=== PATIENT | male | born 1995 | race Caucasian/White ===

== ENCOUNTER 2017-11-22 15:23 | Emergency (ER) | payer OTHER | END 2017-11-22 15:50 | disposition left against medical advice (07) | DX: Z53.21 Procedure and treatment not carried out due to patient leaving prior to being seen by health care provider (principal) ==

== ENCOUNTER 2017-12-29 19:09 | Inpatient (IN) | payer OTHER ==
[2017-12-29 19:24] LABS: PLATELET COUNT 197 10^3/uL (150-400)
--- NOTE | 2017-12-29 20:08 | EDPHY ---
H & P Time Seen by Provider: 12/29/17 19:10 HPI/ROS: CHIEF COMPLAINT: M1 hold HISTORY OF PRESENT ILLNESS: 22-year-old male presents to the emergency department on M1 hold. Patient has a history schizoaffective disorder and apparently has been noncompliant with his medications for months. The patient is currently on a court-ordered certification. The patient tells me that he is not suicidal homicidal. He denies auditory or visual hallucinations. He denies substance abuse. He currently has no physical complaints. He denies pain in his chest or difficulty breathing. Denies abdominal pain. Denies headache. Denies any reported trauma. REVIEW OF SYSTEMS: Constitutional: No fever, no chills. Eyes: No double or blurry vision. ENT: No sore throat. Respiratory: No cough, no shortness of breath. Cardiac: No chest pain. Gastrointestinal: No abdominal pain, vomiting or diarrhea. Genitourinary: No dysuria. Musculoskeletal: No neck or back pain. Skin: No rashes. Neurological: No headache. Past Medical/Surgical History: Schizoaffective disorder, polysubstance abuse Social History: Single Smoking Status: Current some day smoker Physical Exam: General Appearance: Alert, no distress. Poor eye contact, flat affect. Eyes: Pupils equal and round. Extraocular motions are all intact. ENT: Mouth: Mucous membranes moist. Respiratory: No wheezing, rhonchi, or rales, lungs are clear to auscultation. Cardiovascular: Regular rate and rhythm. Gastrointestinal: Abdomen is soft and nontender, no masses, no rebound or guarding, bowel sounds normal. Neurological: Alert and oriented x 3, cranial nerves II through XII grossly intact Skin: Warm and dry, no rashes. Musculoskeletal: Nontender to palpate along the cervical, thoracic or lumbar spine. Neck is supple. Extremities: Full range of motion and no peripheral edema. Psychiatric: Patient is oriented X 3, there is no agitation. Constitutional: Initial Vital Signs Temperature (C) 37.1 C 12/29/17 19:18 Heart Rate 85 12/29/17 19:18 Respiratory Rate 20 12/29/17 19:18 Blood Pressure 122/75 H 12/29/17 19:18 O2 Sat (%) 98 12/29/17 19:18 O2 Delivery Mode Room Air Allergies/Adverse Reactions: No Known Allergies Allergy (Verified 12/29/17 19:18) Home Medications: Medication Instructions Recorded OLANZapine DISINTEGR [ZyPREXA 20 mg PO HS #30 tab 12/11/15 ZYDIS (*)] OXcarbazepine [Trileptal 300mg (*)] 600 mg PO DAILY #60 tab 12/11/15 OXcarbazepine [Trileptal 300mg (*)] 600 mg PO HS #60 tab 12/11/15 [place]-3 Fatty Acids [Fish Oil 1000 1,000 mg PO DAILY #0 cap 12/11/15 mg (*)] cloZAPine [Clozaril (*)] 75 mg PO HS #90 tab 12/11/15 Medical Decision Making ED Course/Re-evaluation: 22-year-old male with a known history of schizoaffective disorder has been noncompliant with medication. He is on a certification. He has been evaluated by mental health and medically cleared and he will be placed on 3 [place] inpatient mental health bed. Differential Diagnosis: Depression including functional and major depression, situational depression, medication side effect, drugs and alcohol abuse. - Data Points Laboratory Results: Laboratory Results 12/29/17 19:05 12/29/17 19:05 12/29/17 12/29/17 12/29/17 19:49 19:05 19:05 WBC 8.47 10^3/uL 10^3/uL (3.80-9.50) RBC 5.68 10^6/uL 10^6/uL (4.40-6.38) Hgb 17.0 g/dL g/dL (13.7-17.5) Hct 49.9 % % (40.0-51.0) MCV 87.9 fL fL (81.5-99.8) MCH 29.9 pg pg (27.9-34.1) MCHC 34.1 g/dL g/dL (32.4-36.7) RDW 12.6 % % (11.5-15.2) Plt Count 197 10^3/uL 10^3/uL (150-400) MPV 10.7 fL fL (8.7-11.7) Neut % (Auto) 50.3 % % (39.3-74.2) Lymph % (Auto) 40.4 % % (15.0-45.0) [place] % (Auto) 7.3 % % (4.5-13.0) Eos % (Auto) 1.2 % % (0.6-7.6) Baso % (Auto) 0.7 % % (0.3-1.7) Nucleat RBC Rel Count 0.0 % % (0.0-0.2) Absolute Neuts (auto) 4.26 10^3/uL 10^3/uL (1.70-6.50) Absolute Lymphs (auto) 3.42 10^3/uL H 10^3/uL (1.00-3.00) Absolute Monos (auto) 0.62 10^3/uL 10^3/uL (0.30-0.80) Absolute Eos (auto) 0.10 10^3/uL 10^3/uL (0.03-0.40) Absolute Basos (auto) 0.06 10^3/uL 10^3/uL (0.02-0.10) Absolute Nucleated RBC 0.00 10^3/uL 10^3/uL (0-0.01) Immature Gran % 0.1 % % (0.0-1.1) Immature Gran # 0.01 10^3/uL 10^3/uL (0.00-0.10) Sodium 142 mEq/L mEq/L (135-145) Potassium 3.9 mEq/L mEq/L (3.3-5.0) Chloride 103 mEq/L mEq/L (97-110) Carbon Dioxide 25 mEq/l mEq/l (22-31) Anion Gap 14 mEq/L mEq/L (8-16) BUN 14 mg/dL mg/dL (7-23) Creatinine 0.9 mg/dL mg/dL (0.7-1.3) Estimated GFR > 60 Glucose 82 mg/dL mg/dL (70-100) Calcium 9.5 mg/dL mg/dL (8.5-10.4) Urine Opiates Screen NEGATIVE (NEGATIVE) Urine Barbiturates NEGATIVE (NEGATIVE) Ur Phencyclidine Scrn NEGATIVE (NEGATIVE) Ur Amphetamine Screen NEGATIVE (NEGATIVE) U Benzodiazepines Scrn NEGATIVE (NEGATIVE) Urine Cocaine Screen NEGATIVE (NEGATIVE) U Marijuana (THC) Screen NEGATIVE (NEGATIVE) Ethyl Alcohol < 10 mg/dL mg/dL (0-10) Medications Given: Discontinued Medications Lorazepam (Ativan) 1 mg PO EDNOW ONE Stop: 12/29/17 22:28 Last Admin: 12/29/17 22:34 Dose: 1 mg Olanzapine (Zyprexa Zydis) 10 mg PO EDNOW ONE Stop: 12/29/17 22:25 Last Admin: 12/29/17 22:34 Dose: 10 mg Departure - Departure Disposition: [facility] IP Clinical Impression: Schizoaffective disorder, depressive type Condition: Fair Referrals: Carmela Smiley PA [Primary Care Provider] - As per Instructions
[2017-12-29] MEDS ORDERED: OLANZapine DISINTEGR 10 MG TAB PO ONE (22:24)
[2017-12-29] MEDS ORDERED: LORazepam 1 MG TAB PO ONE (22:27)
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
--- NOTE | 2017-12-29 23:02 | ASMTTCLDSP ---
TLC Discharge Disposition Disposition: Answers: Admit Discharge Concerns/Recommendations: Notes: IN CONSULTATION WITH [facility] ED PHYSICIAN, RONNY NAVA MD AND ON-CALL PSYCHIATRIST, MELANIE MARCUM MD, BOTH CONCURRED THAT PT APPEARS TO MEET 27-65 CRITERIA REQUIRING PSYCHIATRIC HOSPITALIZATION PT APPEARS TO BE GRAVELY DISABLED DUE TO A MENTAL ILLNESS CONDITION. PT WAS GIVEN THE 3N PROHIBITED BELONGINGS LIST WHILE IN THE ED. Was patient given the Answers: Yes Inpatient Behavioral Health Prohibited Belongings List while in the ED? For inpatient Melanie Marcum MD admission, the following psychiatrist agreed to accept patient for admission to [facility] Hold initiated by: Answers: Court Order Date Signed: 12/29/2017 11:02 PM Electronically Signed By:Mariah Morales
[2017-12-30] MEDS ORDERED: NICOTINE POLACRILEX 2 MG GUM B PRN (00:55)
[2017-12-30] MEDS ORDERED: LORazepam 0.5 MG TAB PO PRN (00:55)
[2017-12-30] MEDS ORDERED: MAG HYDROX/AL HYDROX/SIMETH 30 ML UDCUP PO PRN (00:55)
[2017-12-30] MEDS ORDERED: MAGNESIUM HYDROXIDE 30 ML UDCUP PO PRN (00:55)
[2017-12-30] MEDS ORDERED: ACETAMINOPHEN 325 MG TAB PO PRN (00:55)
[2017-12-30] MEDS ORDERED: OLANZapine DISINTEGR 10 MG TAB PO PRN (00:55)
--- NOTE | 2017-12-30 11:03 | ASMTBHMTP ---
Master Treatment Plan Master Treatment Plan Answers: Impaired Reality for: Date: 12/30/2017 Diagnosis on Admission: Schizoaffective Disorder & Psychotic Disorder Expected length of stay: 3-5 days Reason for admission: Notes: Client is a 22 yoa male, brought to ED on a court order petition signed by [facility]. Per [facility], "pt has been in a mental health program in [place], [place] where pat initially was making great progress; he was highly functional and well groomed after he cam to [place], [place] to visit on July 16, 2017. Pt was complying with Medication and therapy requirements Pt returned to [place] recently, in which MOC "noticed a change in his behavior and a declining in his mental state." "Pt stopped following the rules of the program, his communication with [facility] was nonsensical and disorganized." Pt has a hx of being on COM as well as Certified. Patient's stated presenting problems: Notes: "I don't know." Patient's goals for treatment: Notes: None Patient's strengths: Notes: None Identify supports outside of hospital: Notes: Family and Friends Discharge criteria: Notes: Psychotic symptoms will be reduced or eliminated with return to baseline functioning in affect, thinking and behavior prior to discharge. Initial disposition plan/considerations: Notes: "not sure yet." Master Treatment Plan Required Signatures Psychiatrist signature: Answers: DENIA Perera: RN on-shift signature: Answers: RN: Patient signature: Answers: Patient: Date Signed: 12/30/2017 11:03 AM Electronically Signed By:Vish Moody
[2017-12-30] MEDS ORDERED: OLANZapine DISINTEGR 5 MG TAB PO PRN (12:54)
[2017-12-30] MEDS: OXcarbazepine 300 MG TAB PO SCH ×2 (13:51→20:28)
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
[2017-12-30] MEDS: OLANZapine DISINTEGR 10 MG TAB PO SCH (20:28)
[2017-12-30] MEDS: cloZAPine 25 MG TAB PO SCH (20:29)
[2017-12-31] MEDS: OXcarbazepine 300 MG TAB PO SCH ×2 (12:27→20:19)
--- NOTE | 2017-12-31 13:33 | ASMTBHDC ---
Notes Note: Notes: CC was able to confirm tentative follow up appt for client with provider, See below: Richardson Delgadillo MD [address] [place] [id number] Next Appt: Thursday, January 11 (01/11/18) at 11:30am Date Signed: 12/31/2017 01:33 PM Electronically Signed By:Vish Moody
--- NOTE | 2017-12-31 15:50 | SOAPPROG ---
SOAP Progress Note Assessment/Plan: Assessment: Schizoaffective, bipolar type. Slight improvement noted. (see subjective/ objective note). Attending to ADLs. Patient is not safe to discharge at this time as patient continues to exhibit and express signs of psychosis. Patient requires continued inpatient care because of current psychosis, and requires inpatient level of care to stabilize in order to no longer be a danger to himself/herself, gravely disabled due to mental illness. Patient could benefit from continued inpatient hospitalization for crisis stabilization, safety, and medication evaluation. Plan: Review psychotropic medication treatment informed consent and recommendations. After reviewing options, risk and benefits, patient agrees to continue medications. No medication changes at this time as more time is needed to determine ongoing tolerability and efficacy. Plan is to continue to observe patient for response and side effects from medications, and ongoing monitoring and evaluation. Next steps are for patient to meet with intensive care unit registered nurse to plan a safe discharge plan and establish outpatient services for ongoing treatment. Consider discharge next week if patient is in stable condition, safe, and has a safe discharge plan. PSYCHOTROPIC MEDICATION TREATMENT INFORMED CONSENT and RECOMMENDATIONS: Review nature of condition, diagnosis, and prognosis. Review nature and purpose of psychotropic medication treatment. Review type of psychotropic medications being ordered. Review risk and benefits of psychotropic medication treatment. Review probable length of time patient will need to take medications. Review risk and benefits of not undergoing psychotropic medication treatment. Review alternative treatments to psychotropic medications. Review psychotropic medications contraindications, drug-drug interactions, side effects, and importance of reporting any side effects to a psychiatric provider or nurse during inpatient hospitalization, and upon discharge to patients psychiatric outpatient provider, primary care provider, or other health child care sitter. Review importance of asking a nurse, psychiatric provider, or primary care provider any questions or problems concerning the psychotropic medications. Verify patient understands the information that has been provided, and understands, accepts, and agrees to psychotropic medications. Review patients safety plan and importance of patient to report to staff while hospitalized if patient is ever a danger to self/others, or unable to care for self, and upon discharge, the importance for patient to contact [facility] or [facility], or go to the nearest emergency room, if patient is ever a danger to self/others, or unable to care for self. Recommend that upon discharge patient establish medication management treatment with a psychiatric provider, establishes routine therapy appointments, and follow-up with primary care provider. Verify patient understands and agrees to these recommendations. 12/31/17 16:15 Subjective: Following up with patient for evaluation of psychosis and safety. Patient reports, "Really don't feel like talking to you for very long." Patient provides one word answers to interview questions. Objective: Vital Signs Temp Pulse Resp BP Pulse Ox 36.6 C 50 L 15 114/68 98 12/31/17 06:00 12/31/17 06:00 12/31/17 06:00 12/31/17 06:00 12/31/17 06:00 NURSING REPORT: Consulted with nursing for update on patients progress in treatment. Nurses report patient is not engaged in treatment, is not attending groups, slept 9.5 hours, expresses the following psychiatric symptoms: none; exhibits the following psychiatric symptoms: disorganized and withdrawn to room ; is eating all meals, is taking medications as prescribed with no report of side effects, with no S/S of EPS/akathisia, and denies SI/HI, A/V hallucinations. 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 Patient shows slight treatment response as of today. Patient continues to exhibit signs of psychosis; disorganized and withdrawn to room. The patient is a well-nourished male looking older than chronological age. Attire is appropriate and dress is hospital garb, and is disheveled. Grooming status is inappropriate and disheveled. Ambulation is independent. Gait is normal and coordinated. Posture is normal. Eye contact is inappropriate and avoidant. Motor activity is appropriate. Attitude is uncooperative. Patient appears disinterested, internally occupied and does not relate well to this interviewer. Language production is unspontaneous. Rate is hesitant. Latency of response is prolonged. Patient reports mood as okay euthymic, with constricted incongruent affect. Patients thought process is non-linear and illogical, with loose associations, thought blocking. Patient does not report suicidal/homicidal thoughts, ideas, or plans. Patient denies auditory, visual hallucinations. Patient denies delusions. Patient does appear to be attending to internal stimuli. Patients attention and concentration are poor. Patient is oriented to person, place, time, and situation. Patients insight is poor. Patients judgment is poor. Patient reports taking medications as prescribed. Patient does not report undesirable side effects from the medications. These are described as: Patient slept 9 hours. Patient reports appetite as good, and reports eating all meals. - Time Spent With Patient Time Spent With Patient: 15 minutes, met with patient individually. - Pending Discharge Pending Discharge Within 24 Hours: No Pending Discharge Within 48 Hours: No ICD10 Worksheet Patient Problems: Problems Problem Status Onset Schizoaffective disorder, depressive type Acute Acute psychosis Acute
[2017-12-31] MEDS: cloZAPine 25 MG TAB PO SCH (20:20)
[2017-12-31] MEDS: OLANZapine DISINTEGR 10 MG TAB PO SCH (20:20)
[2018-01-01] MEDS: OXcarbazepine 300 MG TAB PO SCH ×2 (08:29→20:53)
--- NOTE | 2018-01-01 08:45 | SOAPPROG ---
SOAP Progress Note Assessment/Plan: Assessment: Schizoaffective, bipolar type. Slight improvement noted. (see subjective/ objective note). Attending to ADLs. Patient is not safe to discharge at this time as patient continues to exhibit signs of psychosis. Patient requires continued inpatient care because of current psychosis, and requires inpatient level of care to stabilize in order to no longer be a danger to himself/herself , gravely disabled due to mental illness. Patient could benefit from continued inpatient hospitalization for crisis stabilization, safety, and medication evaluation. Plan: Review psychotropic medication treatment informed consent and recommendations. After reviewing options, risk and benefits, patient agrees to continue medications with following changes: increase Clozapine to 100 mg po QHS. No medication changes at this time as more time is needed to determine ongoing tolerability and efficacy. Plan is to continue to observe patient for response and side effects from medications, and ongoing monitoring and evaluation. Next steps are for patient to meet with field care coordinator to plan a safe discharge plan and establish outpatient services for ongoing treatment. Consider discharge next week if patient is in stable condition, safe, and has a safe discharge plan. PSYCHOTROPIC MEDICATION TREATMENT INFORMED CONSENT and RECOMMENDATIONS: Review nature of condition, diagnosis, and prognosis. Review nature and purpose of psychotropic medication treatment. Review type of psychotropic medications being ordered. Review risk and benefits of psychotropic medication treatment. Review probable length of time patient will need to take medications. Review risk and benefits of not undergoing psychotropic medication treatment. Review alternative treatments to psychotropic medications. Review psychotropic medications contraindications, drug-drug interactions, side effects, and importance of reporting any side effects to a psychiatric provider or nurse during inpatient hospitalization, and upon discharge to patients psychiatric outpatient provider, primary care provider, or other health complex care nurse practitioner. Review importance of asking a nurse, psychiatric provider, or primary care provider any questions or problems concerning the psychotropic medications. Verify patient understands the information that has been provided, and understands, accepts, and agrees to psychotropic medications. Review patients safety plan and importance of patient to report to staff while hospitalized if patient is ever a danger to self/others, or unable to care for self, and upon discharge, the importance for patient to contact [facility] or [facility], or go to the nearest emergency room, if patient is ever a danger to self/others, or unable to care for self. Recommend that upon discharge patient establish medication management treatment with a psychiatric provider, establishes routine therapy appointments, and follow-up with primary care provider. Verify patient understands and agrees to these recommendations. 01/01/18 08:45 Subjective: Following up with patient for evaluation of psychosis and safety. Patient reports, Just trying to tie the loose ends in the knot. Patient provides one- word answers to interview questions. Patient agrees to continue medications and meet with Dr. Arcos from [facility] today at 1000 to discuss potential for patient to be admitted to their program after discharge. Objective: Vital Signs Temp Pulse Resp BP Pulse Ox 36.3 C 70 14 102/64 96 01/01/18 06:00 01/01/18 06:00 01/01/18 06:00 01/01/18 06:00 01/01/18 06:00 NURSING REPORT: Consulted with nursing for update on patients progress in treatment. Nurses report patient is not engaged in treatment, is not attending groups, slept 9 hours, expresses the following psychiatric symptoms: none; exhibits the following psychiatric symptoms: disorganized and withdrawn to room ; is eating all meals, is taking medications as prescribed with no report of side effects, with no S/S of EPS/akathisia, and denies SI/HI, A/V hallucinations. 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 Arcos today at 1000. UPDATE: Patient is currently slowly improving, tolerating medications with no reports of side effects, and with fair response for psychotic symptoms. Patient shows slight treatment response as of today. Patient continues to exhibit signs of psychosis; disorganized, nonsensical, and withdrawn to room. The patient is a well-nourished male looking older than chronological age. Attire is appropriate and dress is hospital garb, and is disheveled. Grooming status is inappropriate and disheveled. Ambulation is independent. Gait is normal and coordinated. Posture is normal. Eye contact is inappropriate and avoidant. Motor activity is appropriate. Attitude is uncooperative. Patient appears disinterested, internally occupied and does not relate well to this interviewer. Language production is unspontaneous. Rate is hesitant. Latency of response is prolonged. Patient reports mood as okay euthymic, with constricted incongruent affect. Patients thought process is non-linear and illogical, with loose associations, thought blocking. Patient does not report suicidal/homicidal thoughts, ideas, or plans. Patient denies auditory, visual hallucinations. Patient denies delusions. Patient does appear to be attending to internal stimuli. Patients attention and concentration are poor. Patient is oriented to person, place, time, and situation. Patients insight is poor. Patients judgment is poor. Patient reports taking medications as prescribed. Patient does not report undesirable side effects from the medications. These are described as: Patient slept 9 hours. Patient reports appetite as good, and reports eating all meals. - Time Spent With Patient Time Spent With Patient: 15 minutes, met with patient individually. - Pending Discharge Pending Discharge Within 24 Hours: No Pending Discharge Within 48 Hours: No ICD10 Worksheet Patient Problems: Problems Problem Status Onset Schizoaffective disorder, depressive type Acute Acute psychosis Acute
[2018-01-01] MEDS: OLANZapine DISINTEGR 10 MG TAB PO SCH (20:53)
[2018-01-01] MEDS: cloZAPine 25 MG TAB PO SCH (20:54)
[2018-01-02] MEDS: OXcarbazepine 300 MG TAB PO SCH ×4 (09:05→20:14)
--- NOTE | 2018-01-02 17:04 | SOAPPROG ---
SOAP Progress Note Assessment/Plan: Assessment: 22yo with Hx of SZA d/o and noncompliance with medications x 2 months, decompensated and brought in on court-ordered eval initiated by mother. Hx of + response to clozapine, restarting. 01/02/18 15:46 per staff, slept 6hr +2. refused AM trileptal, stating it was not his medication. has not been attending groups. on eval, regarding his medications, pt reports with irritated affect, "I've taken them all before, Invega, Deplin, mood stabilizers, antidepressants, I wouldn't be back here if they worked...they make me groggy and tired...I prefer a stimulant." denied other med s/e. MSE: decr eye contact throughout interview, flattened affect until became irritable with questions about medications, nml speech rate/vol, denied ah/vh and did not appear responding to internal stimuli. guarded. preferred no further questions. denied SI or thoughts to harm others. i/j both seemed impaired. PLAN: cont current meds. plan incr clozapine to 150mg qhs tomorrow pm on [facility] Objective: Vital Signs Temp Pulse Resp BP Pulse Ox 36.6 C 63 14 118/65 96 01/02/18 06:00 01/02/18 06:00 01/02/18 06:00 01/02/18 06:00 01/02/18 06:00 - Time Spent With Patient Time Spent With Patient: 20min - Pending Discharge Pending Discharge Within 24 Hours: No Pending Discharge Within 48 Hours: No ICD10 Worksheet Patient Problems: Problems Problem Status Onset Schizoaffective disorder, depressive type Acute Acute psychosis Acute
[2018-01-02] MEDS: OLANZapine DISINTEGR 10 MG TAB PO SCH ×2 (20:14→20:15)
[2018-01-02] MEDS: cloZAPine 25 MG TAB PO SCH (20:14)
[2018-01-03] MEDS: OXcarbazepine 300 MG TAB PO SCH ×2 (09:27→20:27)
--- NOTE | 2018-01-03 13:05 | ASMTBHDC ---
Notes Note: Notes: Patient appeared to sleep much of the morning. When he woke later in the day he was uncommunicative with this CC and would only state he was ok. Date Signed: 01/02/2018 02:31 PM Electronically Signed By:Marleni Pereira
--- NOTE | 2018-01-03 14:29 | ASMTBHDC ---
Notes Note: Notes: CC met with patient while he was in his room where he seems to spend the bulk of his time. After speaking with patient about this, he agreed to sign an RAFIQ allowing staff to speak to his mother Isi Leach ([phone]) and she had called to find out if the documents regarding patient's hx of tx had arrived. This CC attempted to reach her by phone and could not leave a message as her vm box was full. In meeting with this patient he was tangential in his thoughts and appeared somewhat guarded/paranoid especially as he read the RAFIQ with great detail and care before signing and had esoteric questions about a couple of details in the RAFIQ. Date Signed: 01/03/2018 02:29 PM Electronically Signed By:Marleni Pereira
--- NOTE | 2018-01-03 20:01 | SOAPPROG ---
SOAP Progress Note Assessment/Plan: Assessment: 22yo with Hx of SZA d/o and noncompliance with medications x 2 months, decompensated and brought in on court-ordered eval initiated by mother. Hx of + response to clozapine, restarting. 01/02/18 15:46 per staff, slept 6hr +2. refused AM trileptal, stating it was not his medication. has not been attending groups. on eval, regarding his medications, pt reports with irritated affect, "I've taken them all before, Invega, Deplin, mood stabilizers, antidepressants, I wouldn't be back here if they worked...they make me groggy and tired...I prefer a stimulant." denied other med s/e. MSE: decr eye contact throughout interview, flattened affect until became irritable with questions about medications, nml speech rate/vol, denied ah/vh and did not appear responding to internal stimuli. guarded. preferred no further questions. denied SI or thoughts to harm others. i/j both seemed impaired. PLAN: cont current meds. plan incr clozapine to 150mg qhs tomorrow pm on [facility] 01/03/18 16:38 per staff, pt has been compliant with all meds today, not signing any releases. mother called to find out if unit had received copy of the patient's records she sent. On eval, pt expressed frustration with being hospitalized again, not sure why or how police came to his place and brought him in for eval. Not interested in reading his M-1 b/c it's not his, it belongs to whomever wrote it. Was not interested in any discussion or explanation. Feels he must take his meds or will ultimately get injection b/c this has happened numerous times before, and tired of this cycle repeating. Did not want to discuss any connection btwn med nonadherence and hospitalization. States "my life is 3/4 kidnapped, 07/21 realization, 07/13 depression, and 1/ peacefulness". Agreed to plan of incr Clozapine tonight. Denied s/e and none clinically evident. MSE: cooperative with interview, although clearly somewhat annoyed and resigned. casually dressed, somewhat disheveled, nml speech rate/vol, mood is: "I'm sick of dealing with dumb people, it's easy to make a kid into a monster, you give one command and they become a pitbull, you wink at them, and they become a magician..." Thoughts illogical at times, and persev of themes of no control, unjust hospitalizations. Did not appear responding to int stim, and denied AH/VH/SI or thoughts to harm others. insight/jdgmt both impaired-poor. PLAN: incr Clozapine to 150mg hs tonight. cont other meds as before ST Try and obtain signed RAFIQ for mother from pt. He stated he would let staff talk to his mother "if she asks to speak to me first". Objective: Vital Signs Temp Pulse Resp BP Pulse Ox 36.4 C 90 14 102/58 L 96 01/03/18 06:00 01/03/18 06:00 01/03/18 06:00 01/03/18 06:00 01/03/18 06:00 - Time Spent With Patient Time Spent With Patient: 25min - Pending Discharge Pending Discharge Within 24 Hours: No Pending Discharge Within 48 Hours: No ICD10 Worksheet Patient Problems: Problems Problem Status Onset Schizoaffective disorder, depressive type Acute Acute psychosis Acute
[2018-01-03] MEDS: OLANZapine DISINTEGR 10 MG TAB PO SCH (20:27)
[2018-01-03] MEDS: cloZAPine 100 MG TAB PO SCH (20:28)
[2018-01-03] MEDS: cloZAPine 25 MG TAB PO SCH (20:28)
[2018-01-04] MEDS: OXcarbazepine 300 MG TAB PO SCH ×2 (08:19→21:12)
--- NOTE | 2018-01-04 08:43 | SOAPPROG ---
SOAP Progress Note Assessment/Plan: Assessment: Schizoaffective, bipolar type. Slight improvement noted. (see subjective/ objective note). Attending to ADLs. Patient is not safe to discharge at this time as patient continues to exhibit signs of psychosis. Patient requires continued inpatient care because of current psychosis, and requires inpatient level of care due to being gravely disabled due to mental illness. Patient could benefit from continued inpatient hospitalization for crisis stabilization , safety, and medication evaluation. Plan: Review psychotropic medication treatment informed consent and recommendations. After reviewing options, risk and benefits, patient agrees to continue medications with following changes: No medication changes at this time as more time is needed to determine ongoing tolerability and efficacy. Continue Clozapine titration; increase Clozapine to 200 mg on Thursday. Plan is to continue to observe patient for response and side effects from medications, and ongoing monitoring and evaluation. Next steps are for patient to meet with field care manager to plan a safe discharge plan and establish outpatient services for ongoing treatment. Consider discharge next week if patient is in stable condition, safe, and has a safe discharge plan. PSYCHOTROPIC MEDICATION TREATMENT INFORMED CONSENT and RECOMMENDATIONS: Review nature of condition, diagnosis, and prognosis. Review nature and purpose of psychotropic medication treatment. Review type of psychotropic medications being ordered. Review risk and benefits of psychotropic medication treatment. Review probable length of time patient will need to take medications. Review risk and benefits of not undergoing psychotropic medication treatment. Review alternative treatments to psychotropic medications. Review psychotropic medications contraindications, drug-drug interactions, side effects, and importance of reporting any side effects to a psychiatric provider or nurse during inpatient hospitalization, and upon discharge to patients psychiatric outpatient provider, primary care provider, or other health managed care director. Review importance of asking a nurse, psychiatric provider, or primary care provider any questions or problems concerning the psychotropic medications. Verify patient understands the information that has been provided, and understands, accepts, and agrees to psychotropic medications. Review patients safety plan and importance of patient to report to staff while hospitalized if patient is ever a danger to self/others, or unable to care for self, and upon discharge, the importance for patient to contact [facility] or [facility], or go to the nearest emergency room, if patient is ever a danger to self/others, or unable to care for self. Recommend that upon discharge patient establish medication management treatment with a psychiatric provider, establishes routine therapy appointments, and follow-up with primary care provider. Verify patient understands and agrees to these recommendations. 01/04/18 08:42 Subjective: Following up with patient for evaluation of psychosis and safety. Patient reports, "Okay." Objective: Vital Signs Temp Pulse Resp BP Pulse Ox 36.4 C 90 14 102/58 L 96 01/03/18 06:00 01/03/18 06:00 01/03/18 06:00 01/03/18 06:00 01/03/18 06:00 NURSING REPORT: Consulted with nursing for update on patients progress in treatment. Nurses report patient is not engaged in treatment, is not attending groups, slept 8.5 hours, expresses the following psychiatric symptoms: none; exhibits the following psychiatric symptoms: disorganized and flat; only slight improvement noted in less withdrawn to room; is eating all meals, is taking medications as prescribed with no report of side effects, with no S/S of EPS/ akathisia, and denies SI/HI, A/V hallucinations. HEDGE FUND ACCOUNTANT UPDATE: currently working on setting up outpatient appointments and making outpatient referrals UPDATE: Patient is currently slowly improving, tolerating medications with no reports of side effects, and with fair response for psychotic symptoms. Patient shows slight treatment response as of today. Patient continues to exhibit signs of psychosis; disorganized; diminished emotional affect. Improvement noted in patient is less withdrawn to room and has been spending more time out of room; does not engage with staff or other patients. The patient is a well-nourished male looking older than chronological age. Attire is appropriate and dress is hospital garb, and is disheveled. Grooming status is inappropriate and disheveled. Ambulation is independent. Gait is normal and coordinated. Posture is normal. Eye contact is inappropriate and avoidant. Motor activity is appropriate. Attitude is uncooperative. Patient appears disinterested, internally occupied and does not relate well to this interviewer. Language production is unspontaneous. Rate is hesitant. Latency of response is prolonged. Monosyllabic responses. Patient reports mood as okay euthymic, with constricted incongruent diminished emotional affect. Patients thought process is non-linear and illogical, with loose associations, thought blocking. Patient does not report suicidal/homicidal thoughts, ideas, or plans. Patient denies auditory, visual hallucinations. Patient denies delusions. Patient does appear to be attending to internal stimuli. Patients attention and concentration are poor. Patient is oriented to person, place, time. Patients insight is poor. Patients judgment is poor. Patient reports taking medications as prescribed. Patient does not report undesirable side effects from the medications. Patient slept 8.5 hours. Patient reports appetite as good, and reports eating all meals. - Time Spent With Patient Time Spent With Patient: 15 minutes, met with patient individually. - Pending Discharge Pending Discharge Within 24 Hours: No Pending Discharge Within 48 Hours: No ICD10 Worksheet Patient Problems: Problems Problem Status Onset Schizoaffective disorder, depressive type Acute Acute psychosis Acute
--- NOTE | 2018-01-04 10:36 | ASMTCMCOM ---
CM Note CM Note Notes: When asked how he was feeling, pt. responded by shrugging his shoulders. Pt. responded by shrugging his shoulders when asked how he slept. Pt. stated "jos" when asked about getting enough food. Pt. stated he doesn't know why he is in the hospital. Pt. stated out of nowhere, and with no explanation the line maintainer "kiddnapped me" and brought him here. Pt. stated he is on medication he was on three years ago and he is "maladjusted to that [medicine]" adding "always bucket turner shit". Pt. denied SI, HI, AVH and paranoia. Pt. reports his only issue is being in the hospital. Pt. presents as alert, calm, passive, with fair eye contact, and lacking insight into his mental health. Staff report pt. sleeping 8.5 hours, showering, and being medication compliant. Date Signed: 01/04/2018 10:35 AM Electronically Signed By:Norma Garcia
[2018-01-04] MEDS: cloZAPine 100 MG TAB PO SCH (21:11)
[2018-01-04] MEDS: cloZAPine 25 MG TAB PO SCH (21:11)
[2018-01-04] MEDS: OLANZapine DISINTEGR 10 MG TAB PO SCH (21:12)
[2018-01-05] MEDS: OXcarbazepine 300 MG TAB PO SCH ×2 (09:20→21:01)
[2018-01-05] MEDS ORDERED: OLANZapine DISINTEGR 10 MG TAB PO SCH (11:51)
--- NOTE | 2018-01-05 12:03 | SOAPPROG ---
SOAP Progress Note Assessment/Plan: Assessment: Schizoaffective, bipolar type. Slight improvement noted. (see subjective/ objective note). Attending to ADLs. Patient is not safe to discharge at this time as patient continues to exhibit signs of psychosis. Patient requires continued inpatient care because of current psychosis, and requires inpatient level of care due to being gravely disabled due to mental illness. Patient could benefit from continued inpatient hospitalization for crisis stabilization , safety, and medication evaluation. Plan: Review psychotropic medication treatment informed consent and recommendations. After reviewing options, risk and benefits, patient agrees to continue medications with following changes: No medication changes at this time as more time is needed to determine ongoing tolerability and efficacy. Continue Clozapine titration; increase Clozapine to 200 mg po QHS and taper Zyprexa Zydis to 5 mg po QHS. Plan to discontinue Zyprexa Zydis po QHS starting tomorrow. Clozapine trough level Thursday 06. Plan is to continue to observe patient for response and side effects from medications, and ongoing monitoring and evaluation. Next steps are for patient to meet with manager career to plan a safe discharge plan and establish outpatient services for ongoing treatment. Consider discharge next week if patient is in stable condition, safe, and has a safe discharge plan. PSYCHOTROPIC MEDICATION TREATMENT INFORMED CONSENT and RECOMMENDATIONS: Review nature of condition, diagnosis, and prognosis. Review nature and purpose of psychotropic medication treatment. Review type of psychotropic medications being ordered. Review risk and benefits of psychotropic medication treatment. Review probable length of time patient will need to take medications. Review risk and benefits of not undergoing psychotropic medication treatment. Review alternative treatments to psychotropic medications. Review psychotropic medications contraindications, drug-drug interactions, side effects, and importance of reporting any side effects to a psychiatric provider or nurse during inpatient hospitalization, and upon discharge to patients psychiatric outpatient provider, primary care provider, or other health child care coordinator. Review importance of asking a nurse, psychiatric provider, or primary care provider any questions or problems concerning the psychotropic medications. Verify patient understands the information that has been provided, and understands, accepts, and agrees to psychotropic medications. Review patients safety plan and importance of patient to report to staff while hospitalized if patient is ever a danger to self/others, or unable to care for self, and upon discharge, the importance for patient to contact [facility] or [facility], or go to the nearest emergency room, if patient is ever a danger to self/others, or unable to care for self. Recommend that upon discharge patient establish medication management treatment with a psychiatric provider, establishes routine therapy appointments, and follow-up with primary care provider. Verify patient understands and agrees to these recommendations. 01/05/18 12:10 Subjective: Following up with patient for evaluation of psychosis and safety. Patients response to how he is doing, "Okay, but that is more tit-for-tot question, the light bulb, more of a theoretical question, really." Objective: Vital Signs Temp Pulse Resp BP Pulse Ox 36.8 C 83 14 130/79 H 97 01/05/18 06:00 01/05/18 06:00 01/05/18 06:00 01/05/18 06:00 01/05/18 06:00 NURSING REPORT: Consulted with nursing for update on patients progress in treatment. Nurses report patient is not engaged in treatment, is not attending groups, slept 6.5 hours, expresses the following psychiatric symptoms: none; exhibits the following psychiatric symptoms: disorganized and flat; only slight improvement noted in less withdrawn to room; is eating all meals, is taking medications as prescribed with no report of side effects, with no S/S of EPS/ akathisia, and denies SI/HI, A/V hallucinations. Nurses report patient refused labs; however, did agree to labs later in the morning when asked again. DIRECT SUPPORT PROFESSIONAL UPDATE: currently working on setting up outpatient appointments and making outpatient referrals. Patient has been at [facility] in the past for treatment, and plan is for patient to discharge here and be admitted at [facility], [facility] reaches a level of stability to be appropriate for treatment there. UPDATE: Patient is currently slowly improving, tolerating medications with no reports of side effects, and with fair response for psychotic symptoms. Patient shows slight treatment response as of today. Patient continues to exhibit signs of psychosis; disorganized; diminished emotional affect. Improvement noted in patient is less withdrawn to room and has been spending more time out of room; minimum engagement with staff and other patients. The patient is in his room drawing appropriately at this desk. The patient is a well-nourished male looking older than chronological age. Attire is appropriate and dress is hospital garb, and is disheveled. Grooming status is inappropriate and disheveled. Ambulation is independent. Gait is normal and coordinated. Posture is normal. Eye contact is inappropriate and avoidant. Motor activity is appropriate. Attitude is uncooperative. Patient appears disinterested, internally occupied and does not relate well to this interviewer. Language production is unspontaneous. Rate is hesitant. Latency of response is prolonged. Monosyllabic responses. Patient reports mood as good euthymic, with constricted incongruent diminished emotional affect. Patients thought process is non-linear and illogical, with loose associations, thought blocking. Patient does not report suicidal/homicidal thoughts, ideas, or plans. Patient denies auditory, visual hallucinations. Patient denies delusions. Patient does appear to be attending to internal stimuli. Patients attention and concentration are poor. Patient is oriented to person, place, time. Patients insight is poor. Patients judgment is poor. Patient reports taking medications as prescribed. Patient does not report undesirable side effects from the medications. Patient slept 6.5 hours. Patient reports appetite as good, and reports eating all meals. - Time Spent With Patient Time Spent With Patient: 15 minutes, met with patient individually. - Pending Discharge Pending Discharge Within 24 Hours: No Pending Discharge Within 48 Hours: No ICD10 Worksheet Patient Problems: Problems Problem Status Onset Schizoaffective disorder, depressive type Acute Acute psychosis Acute
[2018-01-05 13:46] LABS: PLATELET COUNT 168 10^3/uL (150-400)
--- NOTE | 2018-01-05 14:52 | ASMTBHDC ---
Notes Note: Notes: Client is on the unit more socializing with peers. etc. Client presents as better than previous days; however, still sick. Date Signed: 01/05/2018 02:51 PM Electronically Signed By:Vish Moody
[2018-01-05] MEDS: cloZAPine 100 MG TAB PO SCH (21:01)
--- NOTE | 2018-01-06 08:36 | SOAPPROG ---
SOAP Progress Note Assessment/Plan: Assessment: Schizoaffective, bipolar type. Slight improvement noted. (see subjective/ objective note). Attending to ADLs. Patient is not safe to discharge at this time as patient continues to exhibit signs of psychosis. Patient requires continued inpatient care because of current psychosis, and requires inpatient level of care due to being gravely disabled due to mental illness. Patient could benefit from continued inpatient hospitalization for crisis stabilization , safety, and medication evaluation. Plan: Review psychotropic medication treatment informed consent and recommendations. After reviewing options, risk and benefits, patient agrees to continue medications with following changes: Discontinue Zyprexa Zydis 5 mg po QHS. No other medication changes at this time as more time is needed to determine ongoing tolerability and efficacy. Plan is to continue to observe patient for response and side effects from medications, and ongoing monitoring and evaluation. Next steps are for patient to meet with direct care worker to plan a safe discharge plan and establish outpatient services for ongoing treatment. Consider discharge next week if patient is in stable condition, safe, and has a safe discharge plan. PSYCHOTROPIC MEDICATION TREATMENT INFORMED CONSENT and RECOMMENDATIONS: Review nature of condition, diagnosis, and prognosis. Review nature and purpose of psychotropic medication treatment. Review type of psychotropic medications being ordered. Review risk and benefits of psychotropic medication treatment. Review probable length of time patient will need to take medications. Review risk and benefits of not undergoing psychotropic medication treatment. Review alternative treatments to psychotropic medications. Review psychotropic medications contraindications, drug-drug interactions, side effects, and importance of reporting any side effects to a psychiatric provider or nurse during inpatient hospitalization, and upon discharge to patients psychiatric outpatient provider, primary care provider, or other health career coach. Review importance of asking a nurse, psychiatric provider, or primary care provider any questions or problems concerning the psychotropic medications. Verify patient understands the information that has been provided, and understands, accepts, and agrees to psychotropic medications. Review patients safety plan and importance of patient to report to staff while hospitalized if patient is ever a danger to self/others, or unable to care for self, and upon discharge, the importance for patient to contact [facility] or [facility], or go to the nearest emergency room, if patient is ever a danger to self/others, or unable to care for self. Recommend that upon discharge patient establish medication management treatment with a psychiatric provider, establishes routine therapy appointments, and follow-up with primary care provider. Verify patient understands and agrees to these recommendations. 01/06/18 08:35 Subjective: Following up with patient for evaluation of psychosis and safety. Patients response to if he is willing to continue Clozaril after discharge, "No, not really. Actually, all other doctors I have worked with have stated I should not be on it, and should be on something more mild such as Cogentin. Have you called all doctors from [facility] to [facility]?" Objective: Vital Signs Temp Pulse Resp BP Pulse Ox 36.5 C 71 16 120/71 98 01/06/18 06:00 01/06/18 06:00 01/06/18 06:00 01/06/18 06:00 01/06/18 06:00 Laboratory Results 01/05/18 10:45 NURSING REPORT: Consulted with nursing for update on patients progress in treatment. Nurses report patient is not engaged in treatment, is not attending groups, slept 7 hours, expresses the following psychiatric symptoms: none; exhibits the following psychiatric symptoms: disorganized and flat; only slight improvement noted in less withdrawn to room; is eating all meals, is taking medications as prescribed with no report of side effects, with no S/S of EPS/ akathisia, and denies SI/HI, A/V hallucinations. 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 Patient has been at [facility] in the past for treatment, and plan is for patient to discharge here and be admitted at [facility], [facility] reaches a level of stability to be appropriate for treatment there. UPDATE: Patient is currently slowly improving, tolerating medications with no reports of side effects, and with fair response for psychotic symptoms. Patient shows slight treatment response as of today. Patient continues to exhibit signs of psychosis; disorganized; diminished emotional affect. Improvement noted in patient is less withdrawn to room and has been spending more time out of room; minimum engagement with staff and other patients. Patient continues to show no insight into his condition, is currently taking medications as prescribed; however, has communicated unwillingness to continue after discharge. The patient is in his room drawing appropriately at this desk. The patient is a well-nourished male looking older than chronological age. Attire is appropriate and dress is hospital garb, and is disheveled. Grooming status is inappropriate and disheveled. Ambulation is independent. Gait is normal and coordinated. Posture is normal. Eye contact is inappropriate and avoidant. Motor activity is appropriate. Attitude is uncooperative. Patient appears disinterested, internally occupied and does not relate well to this interviewer. Language production is unspontaneous. Rate is hesitant. Latency of response is prolonged. Monosyllabic responses. Patient reports mood as okay euthymic, with constricted diminished emotional incongruent affect. Patients thought process is non-linear and illogical, with loose associations, thought blocking. Patient does not report suicidal/homicidal thoughts, ideas, or plans. Patient denies auditory, visual hallucinations. Patient denies delusions. Patient does appear to be attending to internal stimuli. Patients attention and concentration are poor. Patient is oriented to person, place, time. Patients insight is poor. Patients judgment is poor. Patient reports taking medications as prescribed. Patient does not report undesirable side effects from the medications. Patient slept 7 hours. Patient reports appetite as good, and reports eating all meals. - Time Spent With Patient Time Spent With Patient: 15 minutes, met with patient individually. - Pending Discharge Pending Discharge Within 24 Hours: No Pending Discharge Within 48 Hours: No ICD10 Worksheet Patient Problems: Problems Problem Status Onset Schizoaffective disorder, depressive type Acute Acute psychosis Acute
[2018-01-06] MEDS: OXcarbazepine 300 MG TAB PO SCH ×2 (09:02→20:47)
[2018-01-06] MEDS: cloZAPine 100 MG TAB PO SCH (20:47)
[2018-01-07] MEDS: OXcarbazepine 300 MG TAB PO SCH ×2 (08:18→18:48)
--- NOTE | 2018-01-07 13:33 | SOAPPROG ---
SOAP Progress Note Assessment/Plan: Assessment: Schizoaffective, bipolar type. Improvement noted. (see subjective/objective note). Attending to ADLs. Patient is not safe to discharge at this time as patient continues to exhibit signs of psychosis. Patient requires continued inpatient care because of current psychosis, and requires inpatient level of care due to being gravely disabled due to mental illness. Patient could benefit from continued inpatient hospitalization for crisis stabilization, safety, and medication evaluation. Plan: Review psychotropic medication treatment informed consent and recommendations. After reviewing options, risk and benefits, patient agrees to continue medications. Clozaril level scheduled for Thursday at 0600. No medication changes at this time as more time is needed to determine ongoing tolerability and efficacy. Plan is to continue to observe patient for response and side effects from medications, and ongoing monitoring and evaluation. Next steps are for patient to meet with home care manager rn to plan a safe discharge plan and establish outpatient services for ongoing treatment. Consider discharge Thursday if patient is in stable condition, safe, and has a safe discharge plan. PSYCHOTROPIC MEDICATION TREATMENT INFORMED CONSENT and RECOMMENDATIONS: Review nature of condition, diagnosis, and prognosis. Review nature and purpose of psychotropic medication treatment. Review type of psychotropic medications being ordered. Review risk and benefits of psychotropic medication treatment. Review probable length of time patient will need to take medications. Review risk and benefits of not undergoing psychotropic medication treatment. Review alternative treatments to psychotropic medications. Review psychotropic medications contraindications, drug-drug interactions, side effects, and importance of reporting any side effects to a psychiatric provider or nurse during inpatient hospitalization, and upon discharge to patients psychiatric outpatient provider, primary care provider, or other health healthcare corporate account director. Review importance of asking a nurse, psychiatric provider, or primary care provider any questions or problems concerning the psychotropic medications. Verify patient understands the information that has been provided, and understands, accepts, and agrees to psychotropic medications. Review patients safety plan and importance of patient to report to staff while hospitalized if patient is ever a danger to self/others, or unable to care for self, and upon discharge, the importance for patient to contact [facility] or [facility], or go to the nearest emergency room, if patient is ever a danger to self/others, or unable to care for self. Recommend that upon discharge patient establish medication management treatment with a psychiatric provider, establishes routine therapy appointments, and follow-up with primary care provider. Verify patient understands and agrees to these recommendations. 01/07/18 13:32 Subjective: Following up with patient for evaluation of psychosis and safety. Patients response to if he is willing to continue Clozaril after discharge, "Yes, I guess as long as I can work with my psychiatrist on making a change to maybe Invega or something else if I have side effects from it." Objective: Vital Signs Temp Pulse Resp BP Pulse Ox 36.3 C 72 14 124/69 H 97 01/07/18 06:00 01/07/18 06:00 01/07/18 06:00 01/07/18 06:00 01/07/18 06:00 Laboratory Results 01/05/18 10:45 NURSING REPORT: Consulted with nursing for update on patients progress in treatment. Nurses report patient is not engaged in treatment, is not attending groups, slept 8 hours, expresses the following psychiatric symptoms: none; exhibits the following psychiatric symptoms: withdrawn to room; is eating all meals, is taking medications as prescribed with no report of side effects, with no S/S of EPS/akathisia, and denies SI/HI, A/V hallucinations. Nurses report patient has improved notably no longer disorganized. 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 Patient has an appointment set for Thursday at 1130AM with his OP psychiatrist. UPDATE: Patient is currently showing improvement, tolerating medications with no reports of side effects, and with fair response for psychotic symptoms. Patient shows treatment response as of today. Patient continues to exhibit signs of psychosis: diminished emotional affect. Improvement noted in patient is less withdrawn to room and has been spending more time out of room; minimum engagement with staff and other patients. Patient is showing improved insight into current condition and has agreed to continue medications after discharge. The patient is in his room drawing appropriately at this desk. The patient is a well-nourished male looking older than chronological age. Attire is appropriate and dress is hospital garb, and is disheveled. Grooming status is inappropriate and disheveled. Ambulation is independent. Gait is normal and coordinated. Posture is normal. Eye contact is appropriate. Motor activity is appropriate. Attitude is cooperative. Patient appears attentive are relates fairly well to this interviewer. Language production is spontaneous. R/R/V normal. Patient reports mood as okay euthymic, with constricted diminished emotional incongruent affect. Patients thought process is linear and logical, no signs of formal thought disorder noted. Patient does not report suicidal/homicidal thoughts, ideas, or plans. Patient denies auditory, visual hallucinations. Patient denies delusions. Patient does not appear to be attending to internal stimuli. Patients attention and concentration are adequate. Patient is oriented to person, place, time. Patients insight is fair. Patients judgment is fair. Patient reports taking medications as prescribed. Patient does not report undesirable side effects from the medications. Patient slept 8 hours. Patient reports appetite as good, and reports eating all meals. - Time Spent With Patient Time Spent With Patient: 15 minutes, met with patient individually. - Pending Discharge Pending Discharge Within 24 Hours: No Pending Discharge Within 48 Hours: No ICD10 Worksheet Patient Problems: Problems Problem Status Onset Schizoaffective disorder, depressive type Acute Acute psychosis Acute
[2018-01-07] MEDS: cloZAPine 100 MG TAB PO SCH (18:48)
--- NOTE | 2018-01-08 08:15 | SOAPPROG ---
SOAP Progress Note Assessment/Plan: Assessment: Schizoaffective, bipolar type. Improvement noted. (see subjective/objective note). Attending to ADLs. Patient is not safe to discharge at this time as patient continues to exhibit signs of psychosis. Patient requires continued inpatient care because of current psychosis, and requires inpatient level of care due to being gravely disabled due to mental illness. Patient could benefit from continued inpatient hospitalization for crisis stabilization, safety, and medication evaluationcurrent trial of Clozapine and plan for trough level after day 5 to determine if at a safe and therapeutic dose. Plan: Review psychotropic medication treatment informed consent and recommendations. After reviewing options, risk and benefits, patient agrees to continue medications. Clozaril level scheduled for Thursday at 0600. No medication changes at this time as more time is needed to determine ongoing tolerability and efficacy. Plan is to continue to observe patient for response and side effects from medications, and ongoing monitoring and evaluation. Next steps are for patient to meet with health care coordinator to plan a safe discharge plan and establish outpatient services for ongoing treatment. Consider discharge Thursday if patient is in stable condition, safe, and has a safe discharge plan. PSYCHOTROPIC MEDICATION TREATMENT INFORMED CONSENT and RECOMMENDATIONS: Review nature of condition, diagnosis, and prognosis. Review nature and purpose of psychotropic medication treatment. Review type of psychotropic medications being ordered. Review risk and benefits of psychotropic medication treatment. Review probable length of time patient will need to take medications. Review risk and benefits of not undergoing psychotropic medication treatment. Review alternative treatments to psychotropic medications. Review psychotropic medications contraindications, drug-drug interactions, side effects, and importance of reporting any side effects to a psychiatric provider or nurse during inpatient hospitalization, and upon discharge to patients psychiatric outpatient provider, primary care provider, or other health home care scheduler. Review importance of asking a nurse, psychiatric provider, or primary care provider any questions or problems concerning the psychotropic medications. Verify patient understands the information that has been provided, and understands, accepts, and agrees to psychotropic medications. Review patients safety plan and importance of patient to report to staff while hospitalized if patient is ever a danger to self/others, or unable to care for self, and upon discharge, the importance for patient to contact [facility] or 911, or go to the nearest emergency room, if patient is ever a danger to self/others, or unable to care for self. Recommend that upon discharge patient establish medication management treatment with a psychiatric provider, establishes routine therapy appointments, and follow-up with primary care provider. Verify patient understands and agrees to these recommendations. 01/08/18 08:16 Subjective: Following up with patient for evaluation of psychosis and safety. Patients response to plans after discharge, "Probably stay in [place] for a while, in my parents guest house, then eventually move to [place] and find employment." Patient agrees to continue current medications after discharge, and establish outpatient medication management with his OP psychiatrist. Objective: Vital Signs Temp Pulse Resp BP Pulse Ox 36.6 C 72 14 122/69 H 96 01/08/18 06:00 01/08/18 06:00 01/08/18 06:00 01/08/18 06:00 01/08/18 06:00 Laboratory Results 01/05/18 10:45 NURSING REPORT: Consulted with nursing for update on patients progress in treatment. Nurses report patient is not engaged in treatment, is not attending groups, slept 8 hours, expresses the following psychiatric symptoms: none; exhibits the following psychiatric symptoms: withdrawn to room; is eating all meals, is taking medications as prescribed with no report of side effects, with no S/S of EPS/akathisia, and denies SI/HI, A/V hallucinations. Nurses report patient has improved notably no longer disorganized, improved linear and logical thinking. 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 Patient has an appointment set for Thursday at 1130AM with his OP psychiatrist. UPDATE: Patient is currently showing improvement, tolerating medications with no reports of side effects, and with fair response for psychotic symptoms. Patient shows treatment response as of today. Patient continues to exhibit signs of psychosis: diminished emotional affect. Improvement noted in patient is less withdrawn to room and has been spending more time out of room; minimum engagement with staff and other patients. Patient is showing improved insight into current condition and has agreed to continue medications after discharge. The patient is in his room drawing appropriately at this desk. The patient is a well-nourished male looking older than chronological age. Attire is appropriate and dress is hospital garb, and is disheveled. Grooming status is inappropriate and disheveled. Ambulation is independent. Gait is normal and coordinated. Posture is normal. Eye contact is appropriate. Motor activity is appropriate. Attitude is cooperative. Patient appears attentive are relates fairly well to this interviewer. Language production is spontaneous. R/R/V normal. Patient reports mood as okay euthymic, with constricted, diminished emotional affect. Patients thought process is linear and logical, no signs of formal thought disorder noted. Patient does not report suicidal/homicidal thoughts, ideas, or plans. Patient denies auditory, visual hallucinations. Patient denies delusions. Patient does not appear to be attending to internal stimuli. Patients attention and concentration are adequate. Patient is oriented to person, place, time. Patients insight is fair. Patients judgment is fair. Patient reports taking medications as prescribed. Patient does not report undesirable side effects from the medications. Patient slept 8 hours. Patient reports appetite as good, and reports eating all meals. - Time Spent With Patient Time Spent With Patient: 15 minutes, met with patient individually. - Pending Discharge Pending Discharge Within 24 Hours: No Pending Discharge Within 48 Hours: No ICD10 Worksheet Patient Problems: Problems Problem Status Onset Schizoaffective disorder, depressive type Acute Acute psychosis Acute
[2018-01-08] MEDS: OXcarbazepine 300 MG TAB PO SCH ×2 (08:41→19:18)
--- NOTE | 2018-01-08 13:08 | ASMTBHDC ---
Notes Note: Notes: Pt. reports feeling "confused as always". Pt. reports sleeping "slopply". Pt. stated his medications make him feel sedated and he "need intense stimulant to counteract the Clozaril". Pt. reports having "on and off" side effects from his medications. Pt. reports no goals today. Pt. denied SI, HI, AVH and paranoia. Pt. requested to know when he will be discharged. Pt. presents as alert, passive, soft spoken, flat affect, and with fair eye contact. Staff report pt. sleeping 9.5 hours and being medication compliant. Date Signed: 01/08/2018 01:07 PM Electronically Signed By:Norma Garcia
[2018-01-08] MEDS: cloZAPine 100 MG TAB PO SCH (19:18)
[2018-01-09] MEDS: OXcarbazepine 300 MG TAB PO SCH ×2 (08:22→20:57)
--- NOTE | 2018-01-09 14:06 | SOAPPROG ---
SOAP Progress Note Assessment/Plan: Assessment: Per Amadou Nugent's note: Assessment: Schizoaffective, bipolar type. Improvement noted. (see subjective/objective note). Attending to ADLs. Patient is not safe to discharge at this time as patient continues to exhibit signs of psychosis. Patient requires continued inpatient care because of current psychosis, and requires inpatient level of care due to being gravely disabled due to mental illness. Patient could benefit from continued inpatient hospitalization for crisis stabilization, safety, and medication evaluation current trial of Clozapine and plan for trough level after day 5 to determine if at a safe and therapeutic dose. Plan: 01/09/18 14:02 1. Patient frustrated that he's still in hospital. 2. Tolerating Clozaril and Trileptal, denies any SE's. 3. Will have CBC tomorrow AM. 4. Plan to d/c on Thursday. Subjective: Met with patient, reviewed chart and d/w staff. Patient had visit with parents during lunch. His MOC brought in rosales from her garden. Patient does not like the fact that he's taking Clozaril. He told CC that he "worked so hard to get off it" in past, he is disappointed that he was put back on it at his outpatient provider's recommendation. Patient denies any SI/HI, and denies any hallucinations. Objective: Vital Signs Temp Pulse Resp BP Pulse Ox 36.3 C 99 16 124/81 H 95 01/09/18 06:00 01/09/18 06:00 01/09/18 06:00 01/09/18 06:00 01/09/18 06:00 Laboratory Results 01/05/18 10:45 MSE: Affect: Constricted Mood: "OK" TP: Goal-directed TC: Denies any SI/HI, no AH/VH Insight/Judgment: Poor - Time Spent With Patient Time Spent With Patient: 15" - Pending Discharge Pending Discharge Within 24 Hours: No Pending Discharge Within 48 Hours: Yes Pending Discharge Date: 01/11/18 (Likely to d/c Thursday to f/u with Dr. Ledezma) Pending Discharge Time: 11:00 ICD10 Worksheet Patient Problems: Problems Problem Status Onset Schizoaffective disorder, depressive type Acute Acute psychosis Acute
--- NOTE | 2018-01-09 15:17 | ASMTCMCOM ---
CM Note CM Note Notes: Pt. reports feeling "dizzy", adding it's a side effect from being on his old medication. Pt. stated he feels like "they are spitting on my grave to give me Clozaril". Pt. stated he worked hard to get off of Clozaril and is upset to be on it again. Pt. stated it makes him feel sedated and "making my sleep shallow. Pt. stated the medication doesn't make him feel high. Pt. reports not worrying about his ADLs while in the hospital, adding he usually showers twice a week. Pt. stated "not really" when asked about SI and HI. Pt. stated he is understandably frustrated with people forcing him to be in the hospital, adding "people look at me like I'm diabled". Pt. reports having AVH "slightly", adding he has a broad definition of hallucinations. Pt. reports paranoia about the "clinical veterinarian invading your residence makes me feel more paranoia". Pt. stated "society pushes reliance on other people as the standard, which isn't how it is". Pt. stated the is a change pt's outpatient psychiatrist will be mad at [facility] about changing pt's medications. Staff report pt. sleeping 7.5 hours and being medication compliant. Date Signed: 01/09/2018 03:17 PM Electronically Signed By:Norma Garcia
[2018-01-09] MEDS: cloZAPine 100 MG TAB PO SCH (20:57)
[2018-01-10] MEDS: OXcarbazepine 300 MG TAB PO SCH ×2 (09:00→21:25)
[2018-01-10 09:26] LABS: PLATELET COUNT 156 10^3/uL (150-400)
--- NOTE | 2018-01-10 13:42 | ASMTBHDC ---
Notes Note: Notes: Pt. reports needing boxers. Pt. stated being back on Clozaril, "time moves excruciatingly slow". Pt. stated his sleep has been "a little tricky with medication", adding changing his medications caused a changed in his sleep cycle. Pt. stated upon discharge he will find a place to live in [place] for short-term, and then possible move to [facility], [place], [place], or [place]. Pt. denies SI, HI, AVH and paranoia. Pt. requested a PRN, stating he is having "pretty bad anxiety form waiting around", and rated his anxiety a 7/10. Pt. presents as calm, passive, with minimal eye contact and lacking insight. Staff report pt. sleeping at least 8 hours and being medication compliant. Date Signed: 01/10/2018 01:41 PM Electronically Signed By:Norma Garcia
--- NOTE | 2018-01-10 16:20 | SOAPPROG ---
SOAP Progress Note Assessment/Plan: Assessment: Per Amadou Nugent's note: Assessment: Schizoaffective, bipolar type. Improvement noted. (see subjective/objective note). Attending to ADLs. Patient is not safe to discharge at this time as patient continues to exhibit signs of psychosis. Patient requires continued inpatient care because of current psychosis, and requires inpatient level of care due to being gravely disabled due to mental illness. Patient could benefit from continued inpatient hospitalization for crisis stabilization, safety, and medication evaluation current trial of Clozapine and plan for trough level after day 5 to determine if at a safe and therapeutic dose. Plan: 01/09/18 14:02 1. Patient frustrated that he's still in hospital. 2. Tolerating Clozaril and Trileptal, denies any SE's. 3. Will have CBC tomorrow AM. 4. Plan to d/c on Thursday. 01/10/18 16:16 1. CBC WNL. Clozapine levels pending. 2. States he "hates taking clozaril." Unlikely he will remain compliant after d/ c. 3. F/u in place with Dr. Fish. Subjective: Met with patient, reviewed chart and d/w staff. Patient presents appropriate, calm. He says he doesn't like taking Clozaril. He told MD, "I don't think I'll even stay on meds," after discharge. He denies any SI/HI. Objective: Vital Signs Temp Pulse Resp BP Pulse Ox 36.6 C 107 H 16 110/73 97 01/10/18 06:00 01/10/18 06:00 01/10/18 06:00 01/10/18 06:00 01/10/18 06:00 Laboratory Results 01/10/18 07:00 MSE: Affect: Flat Mood: "OK" TP: Disorganized TC: Denies any SI/HI, no AH/VH , no s/s of RIS Insight/Judgment: Poor a/e/b resistance to taking meds outside hospital - Time Spent With Patient Time Spent With Patient: 15" - Pending Discharge Pending Discharge Within 24 Hours: Yes Pending Discharge Within 48 Hours: No Pending Discharge Date: 01/11/18 (Likely to d/c Thursday f/u with Dr. Fish) Pending Discharge Time: 11:00 ICD10 Worksheet Patient Problems: Problems Problem Status Onset Schizoaffective disorder, depressive type Acute Acute psychosis Acute
[2018-01-10] MEDS: cloZAPine 100 MG TAB PO SCH (21:25)
[2018-01-11 07:10] VITALS: BP 123/71
[2018-01-11] MEDS: OXcarbazepine 300 MG TAB PO SCH (08:33)
--- NOTE | 2018-01-11 13:09 | BDS ---
[f rep st] BEHAVIORAL HEALTH DISCHARGE SUMMARY REASON FOR ADMISSION: Pertinent data from the ED note dated 12/29/2017. The patient presented to the emergency department on an M1 hold. The patient has a history of schizoaffective disorder and has apparently not been compliant with his medications for months. The patient is currently on a court ordered certification. The patient was admitted involuntarily on a court ordered evaluation due to being gravely disabled due to a mental illness. The patient was admitted for safety, crisis stabilization, and medication evaluation. ADMITTING DIAGNOSIS: Schizoaffective disorder, depressive type. ADMISSION PHYSICAL EXAMINATION: The patient was seen by Dr. Francis on 2017, for an internal medication consultation. Reason for referral: Medical clearance for inpatient behavioral health stay. Dr. Francis reported he saw no medical contraindications to this patient's continued stay on the inpatient behavioral health unit or to any psychiatric medications or procedures. For further details, please refer to Dr. Francis's note. ADMISSION LABORATORIES: From the emergency department, CBC was overall within normal limits. The patient had a very slight elevation of absolute lymphocytes of no clinical significance. Serum chemistry revealed normal renal function and electrolytes. Toxicology screen in the serum was negative for ethyl alcohol , and the urine was negative for any substances of abuse. The patient's CBC drawn on 01/05/2018, all within normal limits. Patient's CBC drawn on 2017, all within normal limits. HOSPITAL COURSE: Most prominent symptoms and behaviors while the patient was here were disorganized behavior. The patient was withdrawn and presented with diminished emotional affect. Mental Status: At time of admission, the patient did not answer the majority of the interview questions, was covered up with a blank at the entire time in his room. The patient's grooming status was inappropriate and disheveled, and the patient appeared to be dirty and unwashed. Ambulation was independent on the unit. The patient's gait was observed as normal and coordinated. Posture was lying on his bed. Eye contact was inappropriate and avoidant. Patient's motor activity has been observed to be appropriate with purposeful and organized movements with no involuntary movements noted. The patient's attitude was uncooperative, guarded, defensive, and indifferent. The patient appeared disinterested and did not relate well to the interviewer. Language production was hesitant. Latency of response was prolonged with irritable tone and low inappropriate volume. Amount was monosyllabic. Articulation was mumbled. The patient's thought process was nonlinear, illogical, and disorganized. Target symptoms during hospitalization were psychosis and mood instability. Treatment modalities utilized were milieu and group therapy. Clozaril was started at 50 mg p.o. q.h.s., and Clozaril was titrated throughout the patient's hospitalization to 200 mg p.o. q.h.s. Medication was tolerated with no report of side effects and with good response. Trileptal 600 mg p.o. b.i.d. was started to target mood symptoms, was tolerated with no report of side effects and with good response. The patient has improved considerably with no signs of psychiatric symptoms and no psychiatric symptoms expressed at discharge. The patient reports he has improved since admission, states to be in stable condition, feels safe to discharge, and contracts for safety. The patient's response to treatment was good. There were no adverse or unexpected results of treatment. The patient was safe throughout his stay. At first, the patient did not engage in treatment nor did the patient attend in engaging groups; however, after being on the unit for approximately 1 week, the patient did begin engaging in treatment, attended engaging groups, and was appropriate with staff and other patients. The treatment team consensus is the patient is in stable condition and is safe for discharge today. CONDITION AT DISCHARGE: Patient is in stable condition and is no longer a danger to self or others, and is not gravely disabled due to mental illness. Patient is no longer in need of inpatient level of care, and can be safely and effectively treated within the community. The patients level of risk at time of discharge is low based on the risk assessment below following this discharge summary. MSE: The patient is casually dressed and with good hygiene, and looks stated age. Patient is sitting, posture is upright, and position is relaxed. Patient appears awake, alert, and responds appropriately and reasonably during interview. Patient is engaged, relates well to interviewer, and emotional facial expression is appropriate to situation and changes appropriately with topic. Patient is cooperative, makes comfortable eye contact, and movements are voluntary, deliberate, coordinated, and smooth and even with no inappropriate movements. Patient makes laryngeal sounds effortlessly and shares conversation appropriately; pace of conversation is appropriate, and stream of talking is fluent; articulation is clear and understandable; word choice is effortless and appropriate for education level; completes sentences, occasionally pausing to think; rate and volume are appropriate for interview and setting. Patient reports mood as euthymic. Patients affect is stable with full variable range, congruent with mood, and appropriate to speech and circumstances. Patient has linear and logical thinking, with no loose associations, tangential thought, thought blocking, concrete thinking, or any other signs of formal thought disorder. Patient denies suicidal and homicidal ideation, and denies hallucinations and delusions. Patient appears to be a reliable historian with sound judgement and good insight into current condition. Patient has no apparent dysfunction in recent or remote memory noted , and no evidence of gross cognitive dysfunction noted at any point during the interview. DISCHARGE DIAGNOSIS: Schizoaffective disorder, depressive type. DISCHARGE MEDICATIONS: Clozapine 200 mg p.o. q.h.s., #30 with no refills; Trileptal 600 mg p.o. b.i.d., #60, no refills. Medications and prescriptions were reviewed with the patient at time of discharge for clarification and accuracy. DISPOSITION: Patient left hospital independently and voluntarily with his parents and plans to follow up with his outpatient provider, Dr. Pinto, today at 5 p.m. FOLLOWUP: casting coordinator reports the appropriate outpatient follow-up services have been established and outpatient appointments have been scheduled. The patient received written instructions with times and dates of outpatient follow-up appointments. The following follow-up recommendations were provided to the patient at discharge: Continue psychotropic medications as prescribed and attend appointments as scheduled. Report any side effects to a psychiatric outpatient provider, a primary care provider, or other health multi care technician. Address any questions or problems concerning the psychotropic medications with a psychiatric outpatient provider, a primary care provider, or other health multi care technician. Contact [facility] or [facility], or go to the nearest emergency room, if you are ever a danger to yourself/others, or unable to care for yourself. As soon as possible, establish a routine medication management treatment with a psychiatric provider, establish routine therapy appointments, and follow-up with a primary care provider. LEGAL COURSE: The patient was admitted on a 72-hour court ordered mental health evaluation. During the time of the patient's stay, he was placed on a short-term certification. Patient discharged today independently and voluntarily. ATTITUDE AT TIME OF DISCHARGE: The patient's attitude at time of discharge was positive, and patient reports looking forward to discharging today. Patient reports he feels safe to discharge, is no longer a danger to himself or others, is in stable condition, and contracts for safety. Patient states he will continue medications as prescribed and establish medication management treatment with his outpatient provider after discharge. Patient reports he understands the information that has been provided to him, and he understands, accepts, and agrees to psychotropic medications. Patient reports internal protective factors as the coping skills he has learned while hospitalized here, and he plans to continue to practice these coping skills after discharge. Patient reports external protective factors as his friends, family, and future. Patient describes looking forward to being outside after discharge. Patient describes future plans as eventually moving to [place] where he plans to find employment. Patient reports he has completed his wellness plan and reviewed his wellness plan with his nurse. This REEL HOOKER met with patient's parents at time of discharge. Parents are supportive of the patient and plan to return home where the patient plans to stay with them temporarily until he finds independent housing, and parents report they plan to take the patient to his outpatient appointment today at [address] Pinto. LABORATORIES AND STUDIES: Clozapine level was drawn on January 10 at 0600. This a send out to [facility], and results typically back within 5-7 days. This REEL HOOKER will contact patient and his parents and his outpatient provider with these results when received by [facility] lab. ADVANCE DIRECTIVES: There were no advance directives on file, and patient was full code during hospitalization. The following psychotropic medication treatment informed consent and recommendations were provided to the patient at time of discharge. Patient reports he understands, accepts, and agrees to the information that has been provided. PSYCHOTROPIC MEDICATION TREATMENT INFORMED CONSENT and RECOMMENDATIONS: Review nature of condition, diagnosis, and prognosis. Review nature and purpose of psychotropic medication treatment. Review type of psychotropic medications being prescribed. Review risk and benefits of psychotropic medication treatment. Review probable length of time will need to take medications. Review risk and benefits of not undergoing psychotropic medication treatment. Review alternative treatments to psychotropic medications. Review psychotropic medications contraindications, side effects, and importance of reporting any side effects to a psychiatric provider, primary care provider, or other health multi care technician. Review importance of her asking a psychiatric provider or primary care provider any questions or problems concerning the psychotropic medications. Review recommended testing and monitoring during Clozapine treatment including ANC monitoring frequency, and importance of establishing outpatient medication management to closely monitor patient during Clozapine treatment. Review safety plan and the importance to contact [facility] or 1 , or go to the nearest emergency room, if ever a danger to yourself/others, or unable to care for yourself. Recommend upon discharge to establish routine medication management treatment with a psychiatric provider, establish routine therapy appointments, and follow-up with a primary care provider. Verify patient understands, accepts, and agrees to the information that has been provided. /[id number]/MODL MTDD
--- NOTE | 2018-01-14 14:17 | PDCONSULT ---
Warp Changer Note: Called both patient and patient's OP psychiatrist to provide Clozapine lab results from 01/10/18.
== END 2018-01-11 11:35 | disposition home or self-care (01) | DRG 885 ==
LOC: BBEH 12-30 00:45
PROVIDERS: ADMIT Psychiatry & Neurology Behavioral Neurology & Neuropsychiatry; ATTEND Registered Nurse
DX: F25.1 Schizoaffective disorder, depressive type (principal); F23 Brief psychotic disorder; F17.210 Nicotine dependence, cigarettes, uncomplicated; Z91.14 Patient's other noncompliance with medication regimen
CPT/HCPCS: 80159-90; 80305; G0480

== ENCOUNTER 2018-03-14 11:14 | Inpatient (IN) | payer OTHER ==
[2018-03-14 12:11] LABS: PLATELET COUNT 240 10^3/uL (150-400)
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
--- NOTE | 2018-03-14 14:05 | ASMTTCLDSP ---
[facility] Discharge Disposition Disposition: Answers: Admit Disposition Notes: Notes: In consultation with [facility] ED PA, Brina Serrato and on-call psychiatrist, Yoel Burdick MD, both concurred that pt appears to meet 27-65 criteria requiring psychiatric hospitalization as pt appears to be at risk of harm to self/gravely disabled due to a mental illness condition. Pt was given the 3[facility] prohibited belongings list while in the ED. Was patient given the Answers: Yes Inpatient Behavioral Health Prohibited Belongings List while in the ED? For inpatient Yoel Burdick admission, the following psychiatrist agreed to accept patient for admission to Behavioral Health ([facility]): Hold initiated by: Answers: ED Physician Date Signed: 03/14/2018 02:04 PM Electronically Signed By:Adelina Torres
[2018-03-14] MEDS ORDERED: NICOTINE 21 MG/24 HR PATCH TD ONE (15:10)
[2018-03-14] MEDS ORDERED: MAGNESIUM HYDROXIDE 30 ML UDCUP PO PRN (17:34)
[2018-03-14] MEDS ORDERED: MAG HYDROX/AL HYDROX/SIMETH 30 ML UDCUP PO PRN (17:34)
[2018-03-14] MEDS ORDERED: ACETAMINOPHEN 325 MG TAB PO PRN (17:34)
[2018-03-14] MEDS ORDERED: OLANZapine DISINTEGR 10 MG TAB PO PRN (17:34)
[2018-03-14] MEDS ORDERED: NICOTINE POLACRILEX 2 MG GUM B PRN (17:34)
[2018-03-14] MEDS ORDERED: LORazepam 0.5 MG TAB PO PRN (17:34)
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
--- NOTE | 2018-03-15 10:22 | PDMN ---
Medical Necessity Medical necessity: [facility] Schizophrenia Spectrum Disorders, Adult: Inpatient Care: 23 y/o w/ schizoaffective d/o, bipolar type at risk of harm to self and gravely disabled, M1 hold.
[2018-03-15] MEDS: PALIPERIDONE 3 MG TAB.ER PO SCH (13:35)
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
[2018-03-16] MEDS: PALIPERIDONE 3 MG TAB.ER PO SCH (08:56)
--- NOTE | 2018-03-16 09:07 | SOAPPROG ---
SOAP Progress Note Assessment/Plan: Assessment: Schizoaffective disorder, bipolar type, currently depressed. Non-adherence to outpatient medications. Slight improvement noted. (see subjective/objective note). Patient is not safe to discharge at this time as patient continues to exhibit signs of psychosis. Patient requires continued inpatient care because of current psychosis, and requires inpatient level of care to stabilize in order to no longer be gravely disabled due to mental illness. Patient could benefit from continued inpatient hospitalization for crisis stabilization, safety, and medication evaluation. Due to history of non-adherence, patient could benefit from continued hospitalization to begin trial of Invega Sustenna CAO prior to discharge with objective to improve medication adherence, and decrease the likelihood of rehospitalization. Plan: (1) Psychotropic medications: After reviewing options, risks, and benefits patient agrees to continue current medications. No other medication changes at this time as more time is needed to determine ongoing tolerability and efficacy. Plan is to continue to observe patient for response and side effects from medications, and ongoing monitoring and evaluation. If patient tolerates and repsondss well to Invega oral, consider Invega Sustenna 234 mg IM on Thursday and second loading dose 156 mg IM on Thursday. (2) Review with patient informed consent and recommendations for psychotropic medication treatment listed below (3) Labs: no additional labs at this time (4) Therapy: continue milieu and group therapy (5) Further investigation including gathering information from patients relatives and review of past case records to inform treatment plan. (6) Safety/Wellness plan and follow-up outpatient appointments to be established prior to discharge. Next steps are for patient to meet with health care attorney to plan a safe discharge plan and establish outpatient services for ongoing treatment. (7) Confer with inpatient treatment team regarding treatment plan. (8) Legal status: M1 (9) Consider discharge next week if patient is in stable condition, safe, and has a safe discharge plan. (10) Substance abuse interventions: cannabis abuse education reinforced PSYCHOTROPIC MEDICATION TREATMENT INFORMED CONSENT and RECOMMENDATIONS: Review nature of condition, diagnosis, and prognosis. Review nature and purpose of psychotropic medication treatment. Review type of psychotropic medications being ordered. Review risk and benefits of psychotropic medication treatment. Review probable length of time patient will need to take medications. Review risk and benefits of not undergoing psychotropic medication treatment. Review alternative treatments to psychotropic medications. Review psychotropic medications contraindications, drug-drug interactions, side effects, and importance of reporting any side effects to a psychiatric provider or nurse during inpatient hospitalization, and upon discharge to patients psychiatric outpatient provider, primary care provider, or other health professional healthcare representative. Review importance of asking a nurse, psychiatric provider, or primary care provider any questions or problems concerning the psychotropic medications. Verify patient understands the information that has been provided, and understands, accepts, and agrees to psychotropic medications. Review patients safety plan and importance of patient to report to staff while hospitalized if patient is ever a danger to self/others, or unable to care for self, and upon discharge, the importance for patient to contact [facility] or [facility], or go to the nearest emergency room, if patient is ever a danger to self/others, or unable to care for self. Recommend that upon discharge patient establish medication management treatment with a psychiatric provider, establishes routine therapy appointments, and follow-up with primary care provider. Verify patient understands and agrees to these recommendations. 03/16/18 09:07 Subjective: Following up with patient for evaluation of psychosis, vilma, and safety. Regarding reason for hospitalization due to not taking oral medications as prescribed and recommendation for CAO to improve adherence patient reports, "Yes , that is probably the reason, I will think about it (CAO)." Patient reports taking medications as prescribed, and describes response to medications okay. Patient does not report undesirable side effects from the medications. Patient reports appetite as good, and reports eating all meals. Patient describes getting 8 hours of sleep. Objective: Vital Signs Temp Pulse Resp BP Pulse Ox 36.6 C 70 14 116/56 L 95 03/16/18 06:00 03/16/18 06:00 03/16/18 06:00 03/16/18 06:00 03/16/18 06:00 NURSING REPORT: Consulted with nursing for update on patients progress in treatment. Nurses report patient is not engaged in treatment, is not attending groups, spends majority of time in his room; slept 7 hours, expresses the following psychiatric symptoms: depressed; exhibits the following psychiatric symptoms: diminished emotional affect, flat, withdrawn; is eating approximately 50% of meals, is attending to ADLs with direction from staff, is taking medications as prescribed with no report of side effects, with no s/s of EPS/ akathisia, and denies SI/HI, denies A/V hallucinations, denies delusions. Patient has history of cannabis use and reinforce following: SUBSTANCE ABUSE BRIEF INTERVENTION: Brief intervention regarding the risks of cannabis abuse is provided to patient with goal to reduce the risk of harm that could result from the continued use of cannabis, with the general aim to investigate the problem, raise awareness of problem, develop a solution with the patient, recommend a specific change or activity, and motivate the patient toward change. Assess substance abuse behavior and give supportive advice about harm reduction, recommend a reduction in hazardous/at-risk consumption patterns, and facilitate referrals for additional specialized treatment with manager urgent care. Intermediate goal is for the patient to quit use and attend a NA meetings and substance abuse treatment. Intervention focus on intermediate goals to allow for more immediate success in the treatment process to keep the patient motivated. Review following with patient: Cannabis use risks: Short-term use: impaired short-term memory, impaired motor coordination, altered judgement, in high doses paranoia and psychosis. Long-term use addiction, diminished life satisfaction and achievement, symptoms of chronic bronchitis, and increased risk of chronic psychosis disorders if predisposition to such disorders. In withdrawal anger, aggression irritability, anxiety and nervousness, decreased appetite or weight loss, restlessness, and sleep difficulties with strange dreams. Patient denies having history of substance abuse. Patient seems uninterested in education and referral to OP substance abuse treatment. MSE: The patient is an well-nourished male looking stated chronological age. Attire is inappropriate and dress is casual, and disheveled. Grooming status is inappropriate and disheveled. Ambulation is independent. Gait is normal and coordinated. Posture is normal and relaxed. Eye contact is inappropriate, and avoidant. Motor activity is appropriate with purposeful, organized, coordinated movements; with no involuntary movements. Attitude is uncooperative and defensive. Patient appears disinterested and does not relate well to this interviewer. Language production is unspontaneous. Rate is hesitant. Latency of response is prolonged, with irritable, tone, and appropriate volume, and amount is sparse. Articulation is clear. Patient reports mood as good with constricted, and inappropriate and incongruent affect. Patients thought process is non-linear, disorganized, illogical, and nonsensical. Associations are loose. Patient does not report suicidal/ homicidal thoughts, ideas, or plans. Patient denies auditory, visual hallucinations. Patient denies delusions. Patient does not appear to be attending to internal stimuli. Patients attention and concentration are poor. Patient is oriented to person, place. Patients insight is poor. Patients judgment is poor. - Time Spent With Patient Time Spent With Patient: 15 minutes, met with patient individually. - Pending Discharge Pending Discharge Within 24 Hours: No Pending Discharge Within 48 Hours: No ICD10 Worksheet Patient Problems: Problems Problem Status Onset Rash Acute Schizoaffective disorder Acute Acute psychosis Acute Schizoaffective disorder, depressive type Acute
[2018-03-17] MEDS: PALIPERIDONE 3 MG TAB.ER PO SCH (08:16)
--- NOTE | 2018-03-17 08:19 | SOAPPROG ---
SOAP Progress Note Assessment/Plan: Assessment: Schizoaffective disorder, bipolar type, currently depressed. Non-adherence to outpatient medications. Slight improvement noted, patient is showing improvement from admission and report from his family prior to admission (see subjective/objective note). Patient is not safe to discharge at this time as patient continues to exhibit signs of psychosis. Patient requires continued inpatient care because of current psychosis, and requires inpatient level of care to stabilize in order to no longer be gravely disabled due to mental illness. Patient could benefit from continued inpatient hospitalization for crisis stabilization, safety, and medication evaluation. Due to history of non- adherence, patient could benefit from continued hospitalization to begin trial of Invega Sustenna CAO prior to discharge with objective to improve medication adherence, and decrease the likelihood of rehospitalization. Patient has had several hospitalizations as a result of non-adherence to medications leading to exacerbation of symptoms. Plan: (1) Psychotropic medications: After reviewing options, risks, and benefits patient agrees to continue current medications. No other medication changes at this time as more time is needed to determine ongoing tolerability and efficacy. Plan is to continue to observe patient for response and side effects from medications, and ongoing monitoring and evaluation. If patient tolerates and responds well to Invega oral, consider Invega Sustenna 234 mg IM on Thursday and second loading dose 156 mg IM on Thursday. (2) Review with patient informed consent and recommendations for psychotropic medication treatment listed below (3) Labs: no additional labs at this time (4) Therapy: continue milieu and group therapy (5) Further investigation including gathering information from patients relatives and review of past case records to inform treatment plan. (6) Safety/Wellness plan and follow-up outpatient appointments to be established prior to discharge. Next steps are for patient to meet with childcare worker to plan a safe discharge plan and establish outpatient services for ongoing treatment. (7) Confer with inpatient treatment team regarding treatment plan. (8) Legal status: M1; patient to sign-in for voluntary hospitalization (9) Consider discharge next week if patient is in stable condition, safe, and has a safe discharge plan. (10) Substance abuse interventions: cannabis abuse education reinforced PSYCHOTROPIC MEDICATION TREATMENT INFORMED CONSENT and RECOMMENDATIONS: Review nature of condition, diagnosis, and prognosis. Review nature and purpose of psychotropic medication treatment. Review type of psychotropic medications being ordered. Review risk and benefits of psychotropic medication treatment. Review probable length of time patient will need to take medications. Review risk and benefits of not undergoing psychotropic medication treatment. Review alternative treatments to psychotropic medications. Review psychotropic medications contraindications, drug-drug interactions, side effects, and importance of reporting any side effects to a psychiatric provider or nurse during inpatient hospitalization, and upon discharge to patients psychiatric outpatient provider, primary care provider, or other health before and after school daycare worker. Review importance of asking a nurse, psychiatric provider, or primary care provider any questions or problems concerning the psychotropic medications. Verify patient understands the information that has been provided, and understands, accepts, and agrees to psychotropic medications. Review patients safety plan and importance of patient to report to staff while hospitalized if patient is ever a danger to self/others, or unable to care for self, and upon discharge, the importance for patient to contact [facility] or [facility], or go to the nearest emergency room, if patient is ever a danger to self/others, or unable to care for self. Recommend that upon discharge patient establish medication management treatment with a psychiatric provider, establishes routine therapy appointments, and follow-up with primary care provider. Verify patient understands and agrees to these recommendations. 03/17/18 08:20 Subjective: Following up with patient for evaluation of psychosis, vilma, and safety. This FOREIGN COLLECTION CLERK recommends patient stay hospital on a voluntary basis in order to stabilize and patient states, "I will think about it." Patient agrees to attend treatment team meeting today to discuss recommendation for continued hospitalization. Patient reports taking medications as prescribed, and describes response to medications "okay, I guess." Patient does not report undesirable side effects from the medications, and patient agrees to continue current medications. Patient reports appetite as good, and reports eating all meals. Patient describes getting 8 hours of sleep. Objective: Vital Signs Temp Pulse Resp BP Pulse Ox 36.5 C 78 16 123/69 H 96 03/17/18 06:00 03/17/18 06:00 03/17/18 06:00 03/17/18 06:00 03/17/18 06:00 LABS: Clozapine and norclozapine undetectable and indicates patient was not taking Clozapine as prescribed prior to hospitalization. NURSING REPORT: Consulted with nursing for update on patients progress in treatment. Nurses report patient is not engaged in treatment, is not attending groups, spends majority of time in his room; withdrawn; slept 8 hours, expresses the following psychiatric symptoms: depressed; exhibits the following psychiatric symptoms: diminished emotional affect, flat, withdrawn; is eating approximately 50% of meals, is attending to ADLs with direction from staff, is taking medications as prescribed with no report of side effects, with no s/s of EPS/akathisia, and denies SI/HI, denies A/V hallucinations, denies delusions. Patient has history of cannabis use and reinforce following: SUBSTANCE ABUSE BRIEF INTERVENTION: Brief intervention regarding the risks of cannabis abuse is provided to patient with goal to reduce the risk of harm that could result from the continued use of cannabis, with the general aim to investigate the problem, raise awareness of problem, develop a solution with the patient, recommend a specific change or activity, and motivate the patient toward change. Assess substance abuse behavior and give supportive advice about harm reduction, recommend a reduction in hazardous/at-risk consumption patterns, and facilitate referrals for additional specialized treatment with ambulatory care nurse. Intermediate goal is for the patient to quit use and attend a NA meetings and substance abuse treatment. Intervention focus on intermediate goals to allow for more immediate success in the treatment process to keep the patient motivated. Review following with patient: Cannabis use risks: Short-term use: impaired short-term memory, impaired motor coordination, altered judgement, in high doses paranoia and psychosis. Long-term use addiction, diminished life satisfaction and achievement, symptoms of chronic bronchitis, and increased risk of chronic psychosis disorders if predisposition to such disorders. In withdrawal anger, aggression irritability, anxiety and nervousness, decreased appetite or weight loss, restlessness, and sleep difficulties with strange dreams. Patient denies having history of substance abuse. MSE: Patient is lying in bed. The patient is a well-nourished male looking stated chronological age. Attire is inappropriate and dress is casual, and disheveled. Grooming status is inappropriate and disheveled. Ambulation has been independent. Gait has been normal and coordinated on the unit. Posture is lying and relaxed. Eye contact is inappropriate, and avoidant. Motor activity has been appropriate with purposeful, organized, coordinated movements ; no involuntary movements. Attitude is uncooperative and defensive. Patient appears disinterested and does not relate well to this interviewer. Language production is unspontaneous. Rate is hesitant. Latency of response is prolonged, with irritable, tone, and appropriate volume, and amount is sparse. Articulation is clear. Patient reports mood as good with constricted, and inappropriate and incongruent affect. Patients thought process is non-linear, disorganized, illogical, and nonsensical. Associations are loose. Patient does not report suicidal/homicidal thoughts, ideas, or plans. Patient denies auditory, visual hallucinations. Patient denies delusions. Patient does not appear to be attending to internal stimuli. Patients attention and concentration are poor. Patient is oriented to person, place. Patients insight is poor. Patients judgment is poor. - Time Spent With Patient Time Spent With Patient: 15 minutes, met with patient individually. - Pending Discharge Pending Discharge Within 24 Hours: No Pending Discharge Within 48 Hours: No ICD10 Worksheet Patient Problems: Problems Problem Status Onset Non-adherence to medical treatment Acute Rash Acute Schizoaffective disorder Acute Acute psychosis Acute Schizoaffective disorder, depressive type Acute
[2018-03-17] MEDS ORDERED: PALIPERIDONE 3 MG TAB.ER PO SCH (14:15)
[2018-03-17] MEDS: OXcarbazepine 300 MG TAB PO SCH ×2 (15:55→20:39)
[2018-03-18] MEDS ORDERED: PALIPERIDONE PALMITATE 234 MG/1.5 ML SYR IM ONE ×2 (09:00→11:45)
--- NOTE | 2018-03-18 09:11 | SOAPPROG ---
SOAP Progress Note Assessment/Plan: Assessment: Schizoaffective disorder, bipolar type, currently depressed. Non-adherence to outpatient medications. Slight improvement noted, patient is showing improvement from admission and report from his family prior to admission (see subjective/objective note). Patient is not safe to discharge at this time as patient continues to exhibit signs of psychosis. Patient requires continued inpatient care because of current psychosis, and requires inpatient level of care to stabilize in order to no longer be gravely disabled due to mental illness. Patient could benefit from continued inpatient hospitalization for crisis stabilization, safety, and medication evaluation. Due to history of non- adherence, patient could benefit from continued hospitalization to begin trial of Invega Sustenna CAO prior to discharge with objective to improve medication adherence, and decrease the likelihood of rehospitalization. Patient has history of several hospitalizations as a result of non-adherence to medications leading to exacerbation of symptoms. Plan: (1) Psychotropic medications: After reviewing options, risks, and benefits patient agrees to continue current medications. No other medication changes at this time as more time is needed to determine ongoing tolerability and efficacy. Plan is to continue to observe patient for response and side effects from medications, and ongoing monitoring and evaluation. Patient has tolerated two oral doses of Invega and responding well, Invega Sustenna 234 mg IM on today and second loading dose 156 mg IM on Thursday. Increase Trileptal to 600 mg po BID as patient has tolerated and responded well to this dose in the past. Patient is currently tolerating 300 mg po BID. Continue Invega 9 mg po QD for acute stabilization. (2) Review with patient informed consent and recommendations for psychotropic medication treatment listed below (3) Labs: no additional labs at this time (4) Therapy: continue milieu and group therapy (5) Further investigation including gathering information from patients relatives and review of past case records to inform treatment plan. (6) Safety/Wellness plan and follow-up outpatient appointments to be established prior to discharge. Next steps are for patient to meet with career development director to plan a safe discharge plan and establish outpatient services for ongoing treatment. (7) Confer with inpatient treatment team regarding treatment plan. (8) Legal status: voluntary (9) Consider discharge next week if patient is in stable condition, safe, and has a safe discharge plan. (10) Substance abuse interventions: cannabis abuse education reinforced PSYCHOTROPIC MEDICATION TREATMENT INFORMED CONSENT and RECOMMENDATIONS: Review nature of condition, diagnosis, and prognosis. Review nature and purpose of psychotropic medication treatment. Review type of psychotropic medications being ordered. Review risk and benefits of psychotropic medication treatment. Review probable length of time patient will need to take medications. Review risk and benefits of not undergoing psychotropic medication treatment. Review alternative treatments to psychotropic medications. Review psychotropic medications contraindications, drug-drug interactions, side effects, and importance of reporting any side effects to a psychiatric provider or nurse during inpatient hospitalization, and upon discharge to patients psychiatric outpatient provider, primary care provider, or other health landcare facilitator. Review importance of asking a nurse, psychiatric provider, or primary care provider any questions or problems concerning the psychotropic medications. Verify patient understands the information that has been provided, and understands, accepts, and agrees to psychotropic medications. Review patients safety plan and importance of patient to report to staff while hospitalized if patient is ever a danger to self/others, or unable to care for self, and upon discharge, the importance for patient to contact [facility] or [facility], or go to the nearest emergency room, if patient is ever a danger to self/others, or unable to care for self. Recommend that upon discharge patient establish medication management treatment with a psychiatric provider, establishes routine therapy appointments, and follow-up with primary care provider. Verify patient understands and agrees to these recommendations. 03/18/18 09:12 Subjective: Following up with patient for evaluation of psychosis, vilma, and safety. Patient reports, "Feeling better, a little more even." Patient reports taking medications as prescribed, and describes response to medications as "making my thoughts more even." Patient does not report undesirable side effects from the medications, and patient agrees to continue current medications. When this FURNITURE REFINISHER asks if patient would prefer CAO today or tomorrow patient agrees with Invega Sustenna CAO 234 mg IM today. Patient agrees with second loading dose Invega Sustenna 156 mg IM on Thursday. Patient reports appetite as good, and reports eating all meals. Patient describes getting 8 hours of sleep. Objective: Vital Signs Temp Pulse Resp BP Pulse Ox 36.7 C 64 16 100/53 L 96 03/18/18 06:00 03/18/18 06:00 03/18/18 06:00 03/18/18 06:00 03/18/18 06:00 NURSING REPORT: Consulted with nursing for update on patients progress in treatment. Nurses report patient is somewhat engaged in treatment, is not attending groups, is spending less time in his room, comes out of room for meals and at times sits in day room and watches TV; less withdrawn and more interactive with staff; slept 8 hours, expresses the following psychiatric symptoms: none; exhibits the following psychiatric symptoms: disorganized, diminished emotional affect, flat, withdrawn; is eating approximately all meals this is an improvement since yesterday when only at 50% of meals, is attending to ADLs, is taking medications as prescribed with no report of side effects, with no s/s of EPS/akathisia, and denies SI/HI, denies A/V hallucinations, denies delusions. Patient has history of cannabis use and reinforce following: SUBSTANCE ABUSE BRIEF INTERVENTION: Brief intervention regarding the risks of cannabis abuse is provided to patient with goal to reduce the risk of harm that could result from the continued use of cannabis, with the general aim to investigate the problem, raise awareness of problem, develop a solution with the patient, recommend a specific change or activity, and motivate the patient toward change. Assess substance abuse behavior and give supportive advice about harm reduction, recommend a reduction in hazardous/at-risk consumption patterns, and facilitate referrals for additional specialized treatment with plant health care technician. Intermediate goal is for the patient to quit use and attend a NA meetings and substance abuse treatment. Intervention focus on intermediate goals to allow for more immediate success in the treatment process to keep the patient motivated. Review following with patient: Cannabis use risks: Short-term use: impaired short-term memory, impaired motor coordination, altered judgement, in high doses paranoia and psychosis. Long-term use addiction, diminished life satisfaction and achievement, symptoms of chronic bronchitis, and increased risk of chronic psychosis disorders if predisposition to such disorders. In withdrawal anger, aggression irritability, anxiety and nervousness, decreased appetite or weight loss, restlessness, and sleep difficulties with strange dreams. Patient denies having history of substance abuse. COGNITIVE FUNCTION: Retention / Recall: repeat back these numbers: 5 1 5 0 3 without difficulty / 9 6 8 3 6 4 2 - with difficulty, recalls first 3 numbers only Abstractions: What does the statement Rolling stones gather no gilliam mean? "talking about motion and decay, if the stones are in motion maybe they already have decay and do not have gilliam, but if they are not moving they may not have decay." How is an airplane similar to a bird? "both fly" Memory: Remember these 3 items, ask to repeat back: Pin, Car, Duck. After 3 minutes, "Pin, Cap, and Ball" Judgement: If you were in a restaurant and heard a fire alarm go off, what would you do? "look around, see if it is legitimate, then try and chill and lay low" If you found a stamped, sealed envelope on the side walk, what would you do with it? "look to see if there was any ownership, probably get confused about it" Orientation: x3, Situation? - "here because too much stuff going on in whatever way" Calculations: 3 x 7 Count backwards by 3 or 7 starting from 100 - without difficulty for both 3 and 7 Knowledge: Current president of the [place]? Before that? "Edgar Horan" MSE: Patient presents to this weir fisher office, his is change from previous days when patient would not get out of bed for interview. The patient is a well- nourished male looking stated chronological age. Attire is inappropriate and dress is casual, and disheveled. Grooming status is inappropriate and disheveled. Ambulation is independent. Gait is normal and coordinated. Posture is sitting and relaxed. Eye contact is appropriate, and adequate. Motor activity has been appropriate with purposeful, organized, coordinated movements; no involuntary movements. Attitude is cooperative. Patient appears fairly interested and relates well to this interviewer. Language production is spontaneous. Rate is hesitant. Latency of response is prolonged, monotone, and appropriate volume, and amount is sparse. Articulation is clear. Patient reports mood as good with constricted, and inappropriate and incongruent affect. Patients thought process is non-linear, disorganized, illogical, nonsensical, and thought blocking with delayed reponses to interview questions and during cognitive exam. Associations are loose. Patient does not report suicidal/homicidal thoughts, ideas, or plans. Patient denies auditory, visual hallucinations. Patient denies delusions. Patient does not appear to be attending to internal stimuli. Patients attention and concentration are poor. Patient is oriented to person, place, and time. Patients insight is poor. Patients judgment is poor. - Time Spent With Patient Time Spent With Patient: 20 minutes, met with patient individually. - Pending Discharge Pending Discharge Within 24 Hours: No Pending Discharge Within 48 Hours: No ICD10 Worksheet Patient Problems: Problems Problem Status Onset Non-adherence to medical treatment Acute Rash Acute Schizoaffective disorder Acute Acute psychosis Acute Schizoaffective disorder, depressive type Acute
[2018-03-18] MEDS: PALIPERIDONE 3 MG TAB.ER PO SCH (12:01)
[2018-03-18] MEDS: OXcarbazepine 300 MG TAB PO SCH ×2 (12:07→20:46)
--- NOTE | 2018-03-18 13:06 | ASMTCMCOM ---
CM Note CM Note Notes: The patient signed in voluntarily and is medication adherent. His speech is delayed and he is at times not responsive. He was observed looking past this credit underwriter during their interaction. The patient does not have a discharge plan, he asked about the homeless nursing home. He reported that he may be able to return home to his parents temporarily as well. CC was unable to assess whether he has other OP providers in addition to Luis Bai MD. Date Signed: 03/18/2018 01:05 PM Electronically Signed By:Otilia Ortega
--- NOTE | 2018-03-18 13:36 | ASMTBHFAM ---
Notes Note: Notes: Per Jaren Leach, "He can come home if he is medication compliant. We also have other expectations such as cleaning up around the house, etc. He was in a program in [place] for two years, he was discharged in September 2017 because he was not medication compliant and he was breaking the rules of the program. We brought him back to [place] and then he stayed with us for a short time and also with a friend (who he met in the program) in an apartment. He went totally off his medications in December and a court-ordered evaluation was issued. This is when he was most recently hospitalized at [facility]. He discharged home to us and was compliant for six and a half weeks and then he was off the medication for five nights prior to this last incident. He is in the fourth percentile on executive functioning in two major tests. He is 98 percentile IQ. In middle school, Concerta was very effective but [facility] was cautious about prescribing medication for ADHD because it can counteract anti-psychotics. He used to see Chantel Montoya." Date Signed: 03/18/2018 01:19 PM Electronically Signed By:Otilia Ortega
--- NOTE | 2018-03-19 07:19 | SOAPPROG ---
SOAP Progress Note Assessment/Plan: Assessment: Schizoaffective disorder, bipolar type, currently depressed. Non-adherence to outpatient medications. Slight improvement noted, patient is showing improvement from admission and report from his family prior to admission (see subjective/objective note). Patient is not safe to discharge at this time as patient continues to exhibit signs of psychosis. Patient requires continued inpatient care because of current psychosis, and requires inpatient level of care to stabilize in order to no longer be gravely disabled due to mental illness. Patient could benefit from continued inpatient hospitalization for crisis stabilization, safety, and medication evaluation. Due to history of non- adherence, patient could benefit from continued hospitalization to begin trial of Invega Sustenna CAO prior to discharge with objective to improve medication adherence, and decrease the likelihood of rehospitalization. Plan: (1) Psychotropic medications: After reviewing options, risks, and benefits patient agrees to continue current medications. No other medication changes at this time as more time is needed to determine ongoing tolerability and efficacy. Plan is to continue to observe patient for response and side effects from medications, and ongoing monitoring and evaluation. Second loading dose 156 mg IM on Thursday. Continue Invega 9 mg po QD for acute stabilization, and continue Trileptal 600 mg po BID for mood stabilization. (2) Review with patient informed consent and recommendations for psychotropic medication treatment listed below (3) Labs: no additional labs at this time (4) Therapy: continue milieu and group therapy (5) Further investigation including gathering information from patients relatives and review of past case records to inform treatment plan. (6) Safety/Wellness plan and follow-up outpatient appointments to be established prior to discharge. Next steps are for patient to meet with small animal caretaker to plan a safe discharge plan and establish outpatient services for ongoing treatment. (7) Confer with inpatient treatment team regarding treatment plan. (8) Legal status: voluntary (9) Consider discharge Thursday if patient is in stable condition, safe, and has a safe discharge plan. (10) Substance abuse interventions: cannabis abuse education reinforced PSYCHOTROPIC MEDICATION TREATMENT INFORMED CONSENT and RECOMMENDATIONS: Review nature of condition, diagnosis, and prognosis. Review nature and purpose of psychotropic medication treatment. Review type of psychotropic medications being ordered. Review risk and benefits of psychotropic medication treatment. Review probable length of time patient will need to take medications. Review risk and benefits of not undergoing psychotropic medication treatment. Review alternative treatments to psychotropic medications. Review psychotropic medications contraindications, drug-drug interactions, side effects, and importance of reporting any side effects to a psychiatric provider or nurse during inpatient hospitalization, and upon discharge to patients psychiatric outpatient provider, primary care provider, or other health student career development specialist. Review importance of asking a nurse, psychiatric provider, or primary care provider any questions or problems concerning the psychotropic medications. Verify patient understands the information that has been provided, and understands, accepts, and agrees to psychotropic medications. Review patients safety plan and importance of patient to report to staff while hospitalized if patient is ever a danger to self/others, or unable to care for self, and upon discharge, the importance for patient to contact [facility] or [facility], or go to the nearest emergency room, if patient is ever a danger to self/others, or unable to care for self. Recommend that upon discharge patient establish medication management treatment with a psychiatric provider, establishes routine therapy appointments, and follow-up with primary care provider. Verify patient understands and agrees to these recommendations. 03/19/18 07:19 Subjective: Following up with patient for evaluation of psychosis, vilma, and safety. Patient reports, "Still feeling better, slept okay, a little light though." Patient reports taking medications as prescribed, and describes response to medications as good. Patient does not report undesirable side effects from the medications, and patient agrees to continue current medications. Patient agrees to second Invega Sustenna loading dose 156 mg IM on Thursday. Patient reports appetite as good, and reports eating all meals. Patient describes getting 8 hours of sleep, and reports he slept "light." Objective: Vital Signs Temp Pulse Resp BP Pulse Ox 36.5 C 80 16 130/76 H 96 03/19/18 06:00 03/19/18 06:00 03/19/18 06:00 03/19/18 06:00 03/19/18 06:00 NURSING REPORT: Consulted with nursing for update on patients progress in treatment. Nurses report patient is somewhat engaged in treatment, is not attending groups, is spending less time in his room, comes out of room for meals and at times sits in day room and watches TV; less withdrawn and more interactive with staff; slept 8 hours, expresses the following psychiatric symptoms: none; exhibits the following psychiatric symptoms: disorganized, diminished emotional affect, flat, withdrawn, when patient is out of room he paces the halls and appears to be attending to internal stimuli; is eating approximately all meals this is an improvement since Thursday when only eating 50% of meals, is attending to ADLs, is taking medications as prescribed with no report of side effects, with no s/s of EPS/akathisia, and denies SI/HI, denies A /V hallucinations, denies delusions. Patient has history of cannabis use and reinforce following: SUBSTANCE ABUSE BRIEF INTERVENTION: Brief intervention regarding the risks of cannabis abuse is provided to patient with goal to reduce the risk of harm that could result from the continued use of cannabis, with the general aim to investigate the problem, raise awareness of problem, develop a solution with the patient, recommend a specific change or activity, and motivate the patient toward change. Assess substance abuse behavior and give supportive advice about harm reduction, recommend a reduction in hazardous/at-risk consumption patterns, and facilitate referrals for additional specialized treatment with managed care analyst. Intermediate goal is for the patient to quit use and attend a NA meetings and substance abuse treatment. Intervention focus on intermediate goals to allow for more immediate success in the treatment process to keep the patient motivated. Review following with patient: Cannabis use risks: Short-term use: impaired short-term memory, impaired motor coordination, altered judgement, in high doses paranoia and psychosis. Long-term use addiction, diminished life satisfaction and achievement, symptoms of chronic bronchitis, and increased risk of chronic psychosis disorders if predisposition to such disorders. In withdrawal anger, aggression irritability, anxiety and nervousness, decreased appetite or weight loss, restlessness, and sleep difficulties with strange dreams. Patient denies having history of substance abuse. MSE: The patient is a well-nourished male looking stated chronological age. Attire is inappropriate and dress is casual, and disheveled. Grooming status is inappropriate and disheveled. Ambulation is independent. Gait is normal and coordinated. Posture is sitting and relaxed. Eye contact is appropriate, and adequate. Motor activity has been appropriate with purposeful, organized, coordinated movements; no involuntary movements. Attitude is cooperative. Patient appears fairly interested and relates well to this interviewer. Language production is spontaneous. Rate is hesitant. Latency of response is prolonged, monotone, and appropriate volume, and amount is sparse. Articulation is clear. Patient reports mood as good with constricted, and inappropriate and incongruent affect. Patients thought process appears blocked , disorganized, illogical, and nonsensical. Associations are loose. Patient does not report suicidal/homicidal thoughts, ideas, or plans. Patient denies auditory, visual hallucinations. Patient denies delusions. Patient does not appear to be attending to internal stimuli during interview, however, did appear to be attending to internal stimuli yesterday afternoon while pacing the holt. Patients attention and concentration are poor. Patient is oriented to person, place, and time. Patients insight is poor. Patients judgment is poor. COGNITIVE FUNCTION EXAM from 03/18/18: Retention / Recall: repeat back these numbers: 5 1 5 0 3 without difficulty / 9 6 8 3 6 4 2 - with difficulty, recalls first 3 numbers only Abstractions: What does the statement Rolling stones gather no gilliam mean? "talking about motion and decay, if the stones are in motion maybe they already have decay and do not have gilliam, but if they are not moving they may not have decay." How is an airplane similar to a bird? "both fly" Memory: Remember these 3 items, ask to repeat back: Pin, Car, Duck. After 3 minutes, "Pin, Cap, and Ball" Judgement: If you were in a restaurant and heard a fire alarm go off, what would you do? "look around, see if it is legitimate, then try and chill and lay low" If you found a stamped, sealed envelope on the side walk, what would you do with it? "look to see if there was any ownership, probably get confused about it" Orientation: x3, Situation? - "to much stuff going on in whatever way" Calculations: 3 x 7 Count backwards by 3 or 7 starting from 100 without difficulty for both 3 and 7 Knowledge: Current president of the [place]? Before that? "Trump', 'Obama" - Time Spent With Patient Time Spent With Patient: 15 minutes, met with patient individually. - Pending Discharge Pending Discharge Within 24 Hours: No Pending Discharge Within 48 Hours: No ICD10 Worksheet Patient Problems: Problems Problem Status Onset Non-adherence to medical treatment Acute Rash Acute Schizoaffective disorder Acute Acute psychosis Acute Schizoaffective disorder, depressive type Acute
[2018-03-19] MEDS ORDERED: PALIPERIDONE PALMITATE 234 MG/1.5 ML SYR IM ONE (09:00)
[2018-03-19] MEDS: OXcarbazepine 300 MG TAB PO SCH ×2 (09:03→20:27)
[2018-03-19] MEDS: PALIPERIDONE 3 MG TAB.ER PO SCH (09:03)
--- NOTE | 2018-03-19 11:27 | ASMTCMCOM ---
CM Note CM Note Notes: Pt. reports doing "not too bad". Pt. stated he slept "okay", but doesn't feel rested. Pt. stated he is eating "pleny". Pt. reports no issues with his current medications. Pt. reports attending some groups. Pt. stated he has received one injection already, and CC informed him his second injection will be on Thursday. CC asked pt. how he feels about staying until next week, pt. stated "is what it is". Pt. stated he would prefer to discharge "[facility]", but that he understands why he needs to stay until next week. Pt. denied SI, HI, AVH and paranoia. Pt. presents as alert, a bit guarded, unclear if responding to internal stimuli, mostly pleasant demeanor and fair eye contact. Staff report pt. sleeping 8 hours and being medication compliant. Date Signed: 03/19/2018 11:19 AM Electronically Signed By:Norma Garcia
[2018-03-20] MEDS: PALIPERIDONE 3 MG TAB.ER PO SCH (08:36)
[2018-03-20] MEDS: OXcarbazepine 300 MG TAB PO SCH ×2 (08:37→20:42)
--- NOTE | 2018-03-20 11:41 | SOAPPROG ---
SOAP Progress Note Assessment/Plan: Assessment: 23yo with Schizoaffective disorder, bipolar type, currently depressed, and with psychosis. noncompliant with outpatient meds resulting in incr psychosis and rehospitalization. started trial of Invega Sustenna CAO due to hx of med n/c 03/20/18 11:41 slept 7.5hr. per staff, often pacing. received IM Invega initial dose, due for 2nd loading dose 03/21 vol status. hoping for d/c early in week. on interview, pt unkempt, with fair eye contact, nml rate/vol speech. mood "okay ", affect restricted. tp/tc- goal-directed, brief responses, no overt delusions or paranoia, perseverative on d/c soon. denied AH/VH and did not appear overtly responding to any int stim. denied SI or thoughts to harm others. i/j impaired/fair. when asked about his pacing, talked of feeling ready for d/c, and denies feeling restless, although volunteered that he has "found no relaxation method" to engage in, and "I feel like I'm dragging my body". PLAN: cont current meds Invega Sustenna 2nd IM tomorrow, Invega 9mg po qd, trileptal 600mg bid. will add prn Inderal for possible akathisia Objective: Vital Signs Temp Pulse Resp BP Pulse Ox 36.3 C 67 16 157/89 H 100 03/20/18 06:00 03/20/18 06:00 03/20/18 06:00 03/20/18 06:00 03/20/18 06:00 - Time Spent With Patient Time Spent With Patient: 20min - Pending Discharge Pending Discharge Within 24 Hours: No Pending Discharge Within 48 Hours: No ICD10 Worksheet Patient Problems: Problems Problem Status Onset Non-adherence to medical treatment Acute Rash Acute Schizoaffective disorder Acute Acute psychosis Acute Schizoaffective disorder, depressive type Acute
--- NOTE | 2018-03-20 14:02 | ASMTCMCOM ---
CM Note CM Note Notes: Pt. was pacing the halls while speaking with CC. Pt. stated he is feeling "good". Pt. stated he slept "fine". Pt. stated he is "eating plenty", adding he has gained 14lbs in a week and a half. Pt. reports no issues with his current medications. Pt. stated he is attending groups, but couldn't say anything about them or what he has learned. Pt. stated when he discharges he wants to live on his own, but will probably stay with his parents for a little while. Pt. denied SI, HI, AVH and paranoia. Pt. presents as un-groomed, pacing fast, speaking softly, lacking eye contact, and only speaking briefly with CC. Staff report pt. sleeping 7.25 hours. Pt. is scheduled to have his second IM on Thursday. Date Signed: 03/20/2018 02:01 PM Electronically Signed By:Norma Garcia
[2018-03-21] MEDS: MELATONIN 3 MG TAB PO PRN (00:06)
[2018-03-21] MEDS: PALIPERIDONE 3 MG TAB.ER PO SCH (08:22)
[2018-03-21] MEDS: OXcarbazepine 300 MG TAB PO SCH ×2 (08:22→21:05)
[2018-03-21] MEDS ORDERED: PALIPERIDONE PALMITATE 156 MG/ML SYR IM ONE (09:00)
[2018-03-21] MEDS: PROPRANOLOL HCL 10 MG TAB PO PRN ×3 (11:31→21:06)
--- NOTE | 2018-03-21 22:55 | SOAPPROG ---
SOAP Progress Note Assessment/Plan: Assessment:23yo with Schizoaffective disorder, bipolar type, currently depressed , and with psychosis. noncompliant with outpatient meds resulting in incr psychosis and rehospitalization. started trial of Invega Sustenna CAO due to hx of med n/c 03/20/18 11:41 slept 7.5hr. per staff, often pacing. received IM Invega initial dose, due for 2nd loading dose 03/21 vol status. hoping for d/c early in week. on interview, pt unkempt, with fair eye contact, nml rate/vol speech. mood "okay ", affect restricted. tp/tc- goal-directed, brief responses, no overt delusions or paranoia, perseverative on d/c soon. denied AH/VH and did not appear overtly responding to any int stim. denied SI or thoughts to harm others. i/j impaired/fair. when asked about his pacing, talked of feeling ready for d/c, and denies feeling restless, although volunteered that he has "found no relaxation method" to engage in, and "I feel like I'm dragging my body". PLAN: cont current meds Invega Sustenna 2nd IM dose today for loading, Invega 9mg po qd, trileptal 600mg bid. will add prn Inderal for possible akathisia 03/21/18 13:54 slept 7hr. received 2nd IM Invega today for loading. denied any probs with appetite, sleep. admits to feeling restless. seems pacing faster at times when observed in milieu. seems he showered today, casually dressed, steady gait, paces halls. asks details about discharge, ready to leave. nml speech vol/rate, affect flat/ restricted, mood "fine", no SI or thoughts to harm others, tp/tc- linear, goal- directed, no delusions noted, persev on d/c. denied AH/VH. did not appear RIS . i/j fair. PLAN: -will add Propranolol 10mg tid prn for likely akathisia. -consider d/c oral paliperidone, since no oral supplem needed once loaded with IM sustenna. also if w/uncomfortable side effects, may not choose to remain on CAO. may have needed higher doses of oral AP in past when assuming compliance, but actually due to noncompliance. -has prn ativan LATE entry: Up pacing after bedtime after in bed only 1hr. Add benadryl 25mg HS prn for tonight Will HOLD Invega 9mg for team reassessment in AM Objective: Vital Signs Temp Pulse Resp BP Pulse Ox 36.4 C 77 16 127/64 H 96 03/21/18 06:00 03/21/18 21:06 03/21/18 06:00 03/21/18 06:00 03/21/18 06:00 Medications Generic Name Dose Route Start Last Admin Trade Name Freq PRN Reason Stop Dose Admin Oxcarbazepine 600 mg 03/18/18 10:55 03/21/18 21:05 Trileptal PO 09/13/18 14:44 600 mg BID SLIME Olanzapine 10 mg 03/14/18 17:34 03/14/18 18:49 Zyprexa Zydis PO 09/10/18 17:33 10 mg Q4H PRN Agitation, Psychosis Paliperidone 9 mg 03/18/18 09:00 03/21/18 08:22 Invega PO 09/14/18 08:59 9 mg DAILY SLIME Propranolol HCl 10 mg 03/21/18 11:18 03/21/18 21:06 Inderal PO 09/17/18 15:59 10 mg TID PRN restless/pacing Melatonin 3 - 6 mg 03/14/18 17:35 03/21/18 00:06 Melatonin PO 09/10/18 17:34 6 mg HS PRN Sleep/Insomnia Discontinued Medications Generic Name Dose Route Start Last Admin Trade Name Freq PRN Reason Stop Dose Admin Paliperidone Palmitate 156 mg 03/21/18 09:00 03/21/18 09:05 Invega Sustenna IM 03/21/18 09:01 156 mg ONCE ONE Paliperidone Palmitate 156 mg 03/22/18 09:00 Invega Sustenna IM 03/22/18 09:01 ONCE ONE - Time Spent With Patient Time Spent With Patient: 20min - Pending Discharge Pending Discharge Within 24 Hours: Yes Pending Discharge Within 48 Hours: No Pending Discharge Date: 03/23/18 Pending Discharge Time: 11:00 ICD10 Worksheet Patient Problems: Problems Problem Status Onset Non-adherence to medical treatment Acute Rash Acute Schizoaffective disorder Acute Acute psychosis Acute Schizoaffective disorder, depressive type Acute
[2018-03-22] MEDS ORDERED: diphenhydrAMINE 25 MG CAP PO PRN (00:13)
[2018-03-22] MEDS ORDERED: diphenhydrAMINE 25 MG CAP PO ONE (00:19)
[2018-03-22] MEDS: MELATONIN 3 MG TAB PO PRN (01:23)
[2018-03-22] MEDS ORDERED: LORazepam 0.5 MG TAB PO PRN (01:30)
[2018-03-22 07:11] VITALS: BP 118/58
[2018-03-22] MEDS: OXcarbazepine 300 MG TAB PO SCH (08:26)
[2018-03-22] MEDS ORDERED: PROPRANOLOL HCL 10 MG TAB PO SCH (09:00)
[2018-03-22] MEDS ORDERED: PALIPERIDONE PALMITATE 156 MG/ML SYR IM ONE (09:00)
[2018-03-22] MEDS ORDERED: PALIPERIDONE 3 MG TAB.ER PO SCH ×2 (09:00)
--- NOTE | 2018-03-22 12:07 | ASMTBHDC ---
Notes Note: Notes: CC confirmed client's follow up appts: Follow up with: Dr. Luis Bai [address] [place] [id number] Next Appointment: March 29 @ 10:00am. Date Signed: 03/22/2018 12:06 PM Electronically Signed By:Vish Moody
--- NOTE | 2018-03-22 14:02 | BDS ---
ADDENDUM FOR DISCHARGE ANTIPSYCHOTIC MEDICATIONS: Patient was discharged on two antipsychotic medications including Invega Sustenna CAO and Invega oral medication. Taper and adjustments will occur on outpatient basis. REASON FOR ADMISSION: From the ED note dated 03/14/2018, the patient presented to the emergency department voluntarily with his mother. The patient has a history of schizoaffective disorder and had been off his medications for several days. Mother reported the patient has a history of numerous psychotic breaks. He typically does very well living at home with his parents when he takes his medications as prescribed. The patient does smoke marijuana. The patient apparently got into an argument with his father last night and threatened to harm him. No other substance abuse was reported. The patient reported auditory and visual hallucinations. The patient has been hospitalized for this in the past. The patient was admitted involuntarily on an M1 hold due to being gravely disabled due to a mental illness. The patient was admitted for safety, crisis stabilization, and medication management. ADMITTING DIAGNOSIS: Schizoaffective disorder, bipolar type. ADMISSION PHYSICAL EXAM: The patient was seen by Dr. Francis on 03/15/2018, for an internal medicine consultation for medical clearance for inpatient Behavioral Health stay. Dr. Francis reported he saw no medical contraindications to the patient's continued stay in the inpatient behavioral health unit or to any psychiatric medications or procedures. For further details, please refer to Dr. Francis's note dated 03/14/2018. ADMISSION LABS: From 03/13/2018, CBC showed an elevated white blood cell count of 12.31. There was no shift, was predominantly neutrophils and monocytes. Serum chemistry showed normal renal function, electrolytes, and liver functions , with the exception of a slightly elevated alkaline phosphatase at 130, with the upper limit of normal being 126. Toxicology screen in the serum was negative for ethyl alcohol and in the urine was negative for any substances of abuse. Clozapine and norclozapine levels from 03/14/2018 were less than 25 and unable to calculate. MAJOR PROCEDURES OR TESTS: None. HOSPITAL COURSE: The most prominent symptoms and behaviors while the patient was here were disorganized thought process. The patient was withdrawn to his room. The patient was illogical and nonsensical. Target symptoms during hospitalization: Psychosis and mood stability. Treatment modalities utilized were milieu and group therapy. Invega 6 mg p.o. daily was started and was titrated to 9 mg p.o. daily, was tolerated with no report of side effects and with good response. Due to the patient's history of nonadherence to oral medications, the patient agreed to Invega Sustenna. The patient received the first loading dose of Invega Sustenna 234 mg IM on 03/18/2018, . The patient received second loading dose of 156 mg IM day 4 on 03/21/2018. Invega 9 mg p.o. daily was continued for acute psychosis stabilization. These medications were tolerated with no report of side effects and with good response. Trileptal 300 mg p.o. b.i.d. was started and was titrated to the patient's previous dose of 600 mg p.o. b.i.d., was tolerated with no report of side effects and with good response. Propranolol 10 mg p.o. t.i.d. was started for anxiety was tolerated with no report of side effects and with good response. The patient has improved considerably with a significant reduction in psychiatric symptoms, and patient expressed no psychiatric symptoms at discharge. The patient reports he has improved since admission, states to be in stable condition, feels safe to discharge, and he contracts for safety. Patient's response to treatment was good. There were no adverse or unexpected results of treatment. The patient was safe throughout his stay, active in treatment, engaged in groups, and was appropriate with staff and other patients. Patient met with treatment team prior to discharge to assess for safety to discharge, review medications, and discharge plan. The treatment team consensus is the patient is in stable condition and is safe to discharge today. CONDITION ON DISCHARGE: The patient is in stable condition and is no longer a danger to self or others and is not gravely disabled due to a mental illness. The patient is no longer in need of inpatient level of care and can be safely and effectively treated within the community. The patient's level of risk at time of discharge is low. MENTAL STATUS EXAM: The patient is a well-nourished male, looking stated chronological age. Attire is appropriate, and dress is casual, neat and clean. Grooming status is appropriate and clean. Ambulation is independent. Gait is normal and coordinated. Posture is normal and relaxed. Eye contact is appropriate and adequate. Motor activity is appropriate with purposeful, organized, coordinated movements, with no involuntary movements noted. Attitude is cooperative and friendly. The patient appears attentive and relates well to this interviewer. Language production is spontaneous. Rate is fluent. Latency of response is adequate, with appropriate tone and appropriate volume. The amount of speech is also appropriate. Articulation is clear. The patient reports mood as good with congruent affect. Patient's thought process is linear, fairly logical, and overall has improved since admission. Associations are connected. The flow of the patient's thought process is goal directed and at times is circumstantial. The patient does not report suicidal, homicidal thoughts, ideas, or plans. The patient denies auditory or visual hallucinations. The patient denies delusions. The patient does not appear to be attending to internal stimuli. The patient is oriented to person, place, time, and situation. The patient's attention and concentration are adequate. The patient's insight and judgment are adequate. There is no evidence of gross cognitive dysfunction at any point during the interview, and no evidence of apparent dysfunction in recent or remote memory noted. The patient does not report undesirable side effects from the current medications. DISCHARGE DIAGNOSIS: Schizoaffective disorder, bipolar type. CURRENT MEDICATIONS: Invega 9 mg p.o. daily, Trileptal 600 mg p.o. b.i.d., propranolol 10 mg p.o. t.i.d., and the patient received the second loading dose of Invega Sustenna 156 mg IM on 03/21/2018, with first maintenance dose due in 4 weeks. Prescriptions were provided for the Invega 9 mg p.o. daily, Trileptal 600 mg p.o. b.i.d., and propranolol 10 mg p.o. t.i.d. at time of discharge. Prescriptions were reviewed with the patient and patient's family for accuracy and understanding. DISPOSITION: Patient left the hospital independently and voluntarily today with his mother and father after family meeting with them. FOLLOWUP: nursing staff development coordinator reports the appropriate outpatient follow-up services have been established and outpatient appointments have been scheduled. The patient received written instructions with times and dates of outpatient follow-up appointments. The following follow-up recommendations were provided to the patient at discharge: Continue psychotropic medications as prescribed and attend appointments as scheduled. Report any side effects to a psychiatric outpatient provider, a primary care provider, or other health home care companion. Address any questions or problems concerning the psychotropic medications with a psychiatric outpatient provider, a primary care provider, or other health home care companion. Contact [facility] or 911, or go to the nearest emergency room, if you are ever a danger to yourself/others, or unable to care for yourself. As soon as possible, establish a routine medication management treatment with a psychiatric provider, establish routine therapy appointments, and follow-up with a primary care provider. LEGAL COURSE: The patient was admitted on an M1 hold. The patient became voluntary during his stay and patient discharged today independently and voluntarily. ATTITUDE AT TIME OF DISCHARGE: The patients attitude was positive at time of discharge, and patient reports looking forward to discharging today. The patient reports he feels safe to discharge, is no longer a danger to himself or others, is in stable condition, and contracts for safety. Patient states he will continue medications as prescribed, and establish medication management treatment with an outpatient provider after discharge. Patient reports he understands the information that has been provided to him, and he understands, accepts, and agrees to psychotropic medications. Patient describes internal protective factors as the coping skills he has learned while hospitalized here, and he plans to continue to practice these coping skills after discharge. FAMILY MEETING: This FINANCIAL ANALYSIS MANAGER met with patient's mother and father at time of discharge to assess for safety to discharge, review medications, and discharge plan. Patient's mother and father agree patient has improved, is no longer in need of inpatient hospitalization, and is safe to discharge home with them today. LABS AND STUDIES: There were no pending labs or studies at time of discharge. ADVANCE DIRECTIVES: There were no advance directives on file, and the patient was full code during this hospitalization. The following psychotropic medication treatment informed consent and recommendations were provided to the patient at time of discharge. Patient reports he understands, accepts, and agrees to the information that has been provided. PSYCHOTROPIC MEDICATION TREATMENT INFORMED CONSENT and RECOMMENDATIONS: Review nature of condition, diagnosis, and prognosis. Review nature and purpose of psychotropic medication treatment. Review type of psychotropic medications being prescribed. Review risk and benefits of psychotropic medication treatment. Review probable length of time will need to take medications. Review risk and benefits of not undergoing psychotropic medication treatment. Review alternative treatments to psychotropic medications. Review psychotropic medications contraindications, side effects, and importance of reporting any side effects to a psychiatric provider, primary care provider, or other health home care companion. Review importance of her asking a psychiatric provider or primary care provider any questions or problems concerning the psychotropic medications. Review safety plan and the importance to contact [facility] or [facility] , or go to the nearest emergency room, if ever a danger to yourself/others, or unable to care for yourself. Recommend upon discharge to establish routine medication management treatment with a psychiatric provider, establish routine therapy appointments, and follow-up with a primary care provider. Verify patient understands, accepts, and agrees to the information that has been provided. /[id number]
== END 2018-03-22 12:15 | disposition home or self-care (01) | DRG 885 ==
LOC: BBEH 16:50
PROVIDERS: ADMIT Psychiatry & Neurology Psychiatry; ATTEND Psychiatry & Neurology Psychiatry
DX: F25.0 Schizoaffective disorder, bipolar type (principal); T43.506A Underdosing of unspecified antipsychotics and neuroleptics, initial encounter; R21 Rash and other nonspecific skin eruption; F17.200 Nicotine dependence, unspecified, uncomplicated
CPT/HCPCS: 80159-90; 80305; G0480; J2426